=== PATIENT | female | born 1990 | race Caucasian/White ===

== ENCOUNTER → 2017-11-08 08:57 | Outpatient (CLI) | payer MEDICAID, SELFPAY ==
[2017-11-08 10:23] LABS: Glucose,1 Hr (Glucola) 183 mg/dL (80-140)
== END ==
PROVIDERS: PCP Nurse Practitioner Family; Visit Provider Obstetrics & Gynecology
DX: O99.212 Obesity complicating pregnancy, second trimester (principal); Z68.41 Body mass index [BMI] 40.0-44.9, adult; Z3A.28 28 weeks gestation of pregnancy
CPT/HCPCS: 36415; 82950

== ENCOUNTER → 2017-11-15 07:44 | Outpatient (CLI) | payer MEDICAID, SELFPAY ==
[2017-11-15 09:39] LABS: Glucose 1 Hour 173 mg/dL
[2017-11-15 11:40] LABS: Glucose 3 Hour 118 mg/dL
== END ==
PROVIDERS: Obstetrics & Gynecology; PCP Nurse Practitioner Family; Visit Provider Psychiatry & Neurology Psychiatry
DX: R73.02 Impaired glucose tolerance (oral) (principal)
CPT/HCPCS: 36410; 36415; 82951

== ENCOUNTER → 2017-11-22 10:00 | Outpatient (CLI) | payer MEDICAID, SELFPAY ==
--- NOTE | 2017-11-22 14:00 | NS.NUTBLAN_ITS ---
DESCRIPTION/ASSESSMENT: Jana presents for nutrition consult with one elevated blood sugar at 2 hours of the 3 hour GTT. Both her parents have diabetes. No signs of gestational diabetes with her first . She has cheerios, fruit, milk and sugar for breakafst; lasagne and chocolate milk for lunch; pork chops, potato, green beans, corn and milk for supper. She eats kitkat bars and sweets like popsicles and cookies for snack. She states she is active walking and caring for her 4 year old. She spends time at the park and the pool. She works at [employer]. She admits to having no education regarding high blood sugar in . She states she has schizo- affective disorder. INTERVENTION: Discussed with Jana: Effects of high blood sugar on baby and self Diabetes food guide, label reading, portions, distribution, limiting sugar filled food choices. Reviewed basic guidelines. She states if the baby gets too big they will just do a . Physical activity as a way to manage blood sugars Blood sugar test this afternoon 2.5 hours after lunch 151mg/dl. States she does not want to monitor her blood sugars every day. Discussed blood sugar result with her but she states it is difficult for her to change her current food choices because of hte . PLAN: Suggested she shop back at her next provider visit to see what her blood sugar is at that time. She agrees to consider changing food choices at breakfast to increase protein and decrease carbohydrate Informed her that her providers will assess this.
== END ==
PROVIDERS: PCP Nurse Practitioner Family; Visit Provider Dietitian, Registered
DX: O24.419 Gestational diabetes mellitus in pregnancy, unspecified control (principal); Z71.3 Dietary counseling and surveillance
CPT/HCPCS: 97802

== ENCOUNTER → 2017-11-22 10:49 | Outpatient (CLI) | payer MEDICAID, SELFPAY ==
[2017-11-22 11:32] LABS: ROM Plus Negative
== END ==
PROVIDERS: PCP Nurse Practitioner Family; Visit Provider Obstetrics & Gynecology
DX: Z03.71 Encounter for suspected problem with amniotic cavity and membrane ruled out (principal)
CPT/HCPCS: 84112; 97802

== ENCOUNTER 2017-12-13 01:03 | Outpatient (CLI) | payer MEDICAID, SELFPAY ==
--- NOTE | 2017-12-13 10:15 | DI.US_ITS ---
Many abnormalities cannot be diagnosed. A normal exam does not exclude a congenital anomaly. Radiology No. LMP: Exam Date: 12/13/17 [facility] wks days on EDC ([facility]) 02/07/18 Confirmed: HISTORY: LGA,ABNORMAL 1 HR GCT, BORDERLINE GTT,Z34.90 ---- PREDICTED GESTATIONAL AGE NUMBER 32 wks . Range 31 to 33 1 Determined by_X__1STUS___LMP___HISTORY Info. pertaining to fetus # PLACENTA PRESENTATION Grade I-II Cephalic_X__ Anterior__X_Posterior___ Breech____ Right Left Transverse(head right___ Fundal___Low-lying___Previa___ Transverse(head left___ Varying BIOMETRY AMNIOTIC FLUID BPD: 79 mm 31.4 weeks Normal HC: 292 mm 32.1 weeks AC: 285 mm 32.4 weeks FL: 63 mm 32.5 weeks AMNIOTIC FLUID INDEX >26 WK CRL: mm weeks Cisterna Magna: mm CI: 84 RUQ:__5.4____LUQ___5.5 Cerebellum: cm EFW: 1981 grams 55th Percentile RLQ:__2.8____LLQ___2.4____ Total:___16.0 cms Composite AGE= 32.2 wks EDC by US____02/05/18 BIOPHYSICAL PROFILE ANATOMY IDENTIFIED Heart: 4 chamber Rate: 140 BPM LVOT: RVOT: Amniotic Fluid(>2cms)____ Stomach: Kidneys: Respirations (>30 secs) Bladder: Post. Fossa: Body Flex/Extension 3 vessel cord: Ventricles: cord insertion: Lips:____ Extremity Flex/Extension spinal morphology: Nose: Total Score= Palate: NS=not seen Comparison is made with 09/06/17. The fetus in cephalic position. The placenta is anterior. The biometric measurements correspond to 32 weeks 2 days, consistent with previous dating. The amniotic fluid amount appears normal at 16 cm. No abnormalities are identified. IMPRESSION: size and weight are within normal limits for gestational age. Normal FRANCI.
== END 2017-12-13 01:23 ==
PROVIDERS: PCP Nurse Practitioner Family; Visit Provider Obstetrics & Gynecology
DX: Z34.93 Encounter for supervision of normal pregnancy, unspecified, third trimester (principal); O36.63X1 Maternal care for excessive fetal growth, third trimester, fetus 1
CPT/HCPCS: 76816

== ENCOUNTER 2017-12-20 15:05 | Outpatient (CLI) | payer MEDICAID, SELFPAY ==
--- NOTE | 2017-12-21 11:42 | DIABASSESS_ITS ---
DESCRIPTION/ASSESSMENT: Jana is having a stress test and I was invited to visit her to review insulin administration and dosing. She has not had a diabetes visit to date despite attempts to contact her for an appointment. Food Guidelines - Jana eats whatever she wants; cereal and milk in AM; whatever she can grab during her 15 minute lunch break at [employer] which could include chips, candy bar, fruit. She has no time to prepare food and eat. Physical Activity - she is not physically active on a regular basis. She does care for her 5 year old. Medication - currently taking 6 units NPH twice daily. Today she is instructed to increase AM NPH to 10 units and bedtime 8 units. She also has instructions for beginning Regular insulin 2 units with breakfast and supper. She is not storing her insulin in the refrigerator. She uses her legs for injection site. She is not mixing her NPH prior to injection. Monitoring - Jana is testing fasting and randomly after her meals. Fasting blood sugars 82-208 with 2 less than 100 over past 10 days; random blood sugars 91-471, all but 6 of the 30 values over 150mg/dl. INTERVENTION: DSME is provided in the following AADE 7 areas based on patients interest and assessment of needs: Food Guidelines - Discussed carbohydrate sources and portions and problem solved ways to cut back on her portions of those foods. Medication - reviewed preparation, administration and storage of insulin. Discussed new dosing. Limited due to time and her attention. She did demonstrate her pen assembly procedure. Monitoring - reviewed monitoring technique; set time on glucometer and instructed on lancet replacement. Encouraged her to test about 1 hour after a meal, however she works and this is not possible for breakfast and lunch. Reviewed blood sugar targets. She has a new sheet to document her food and blood sugars. Risks - discussed briefly risks to baby of hyperglycemia ACTION PLAN: She will store her unopened pens in the refrigerator. She will mix her NPH insulin prior to use. She will cut back on her carbohydrate portions at each meal - attempting to cut by 1/2 She will take prescribed dose of 10 units AM and 8 units in evening; 2 units regular insulin before breakfast and supper We will f/u Tuesday during her NST.
== END 2017-12-20 15:25 ==
PROVIDERS: PCP Nurse Practitioner Family; Visit Provider Obstetrics & Gynecology Gynecology
DX: O24.419 Gestational diabetes mellitus in pregnancy, unspecified control (principal)
CPT/HCPCS: 59025

== ENCOUNTER 2017-12-23 11:00 | Outpatient (CLI) | payer MEDICAID, SELFPAY ==
--- NOTE | 2017-12-23 15:51 | DIABASSESS_ITS ---
DESCRIPTION/ASSESSMENT: Follow up visit during Jana's NST today to assess glycemic control using 10u NPH AM and 8u NPH PM with addition of Regular insulin at 2 units before breakfast and supper. Visited Jana who states the Regular insulin was not called in, thus she stayed with the original dosing of 6 units NPH morning and evening. She states this morning her fasting blood sugar was over 300mg/dl. She does not have available blood sugars during our brief visit. INTERVENTION: Contacted Dr. Jean who will call in prescription for Regular Kwikpen at 4 units with breakfast and supper. She understands she will be increasing both NPH doses as prescribed and adding regular insulin. Brief review of hypoglycemia symptoms and treatment. Brief review of Gestational Diabetes Guidelines. Unable to review her food intake and monitoring of blood sugars. ACTION PLAN: She will follow insulin schedule and monitor her blood sugars per protocol. We will f/u at her NST next week.
== END 2017-12-23 11:20 ==
PROVIDERS: PCP Nurse Practitioner Family; Visit Provider Obstetrics & Gynecology
DX: O24.419 Gestational diabetes mellitus in pregnancy, unspecified control (principal); Z3A.34 34 weeks gestation of pregnancy
CPT/HCPCS: 59025

== ENCOUNTER 2017-12-27 08:16 | Outpatient (CLI) | payer MEDICAID, SELFPAY ==
--- NOTE | 2017-12-27 15:29 | DIABASSESS_ITS ---
DESCRIPTION/ASSESSMENT: Jana comes back in for her follow up to review dosing insulin with vial and syringe. Blood sugars are better with fasting 166 this morning, usually 170s. She states blood sugar is 280mg/dl in evening. She states she tests her blood sugars, eats, tests blood sugar after dinner and takes insulin at that time. She did not bring her glucometer, log sheet. INTERVENTION: Instructed in the use of the syringe and vial per protocol and she is able to return demonstration. Discussed increasing her mealtime insulin by 1 unit and she feels that would be helpful. Discussed and wrote out process for monitoring and administering her insulin as follows: TAKING INSULIN FOR JANA CHEVY BREAKFAST Test blood sugar Take 10 units NPH and 5 units Regular insulin Eat breakfast Test blood sugar 1 hour after you start breakfast EVENING: Take 5 units Regular Insulin about ? hour before supper Eat supper Test blood sugar 1 hour after you start supper Take 10 units NPH at bedtime ACTION PLAN: We follow up Tuesday during her NST.
--- NOTE | 2017-12-30 10:53 | DIABASSESS_ITS ---
DESCRIPTION/ASSESSMENT: Follow up visit with Jana during her NST today, 12/30 after increasing mealtime insulin to 5 units at breakfast and supper. Blood sugars fasting 598=789; post breakfast 165-218; post lunch 186-214 and post supper 217-286. She has been monitoring her blood sugars in the night at 116-204. INTERVENTION: In consultation with Dr. Casas, basal insulin is increased from 10units to 12 units AM and PM. In addition, an insulin correction scale is initiated at 1 unit to correct 30mg/dl above 130mg/dl. In further discussion with Dr. Casas, she would intensify the mealtime insulin and this will be done if blood sugars 12/31 are not improved. Reviewed hypoglycemia with her and importance of carrying a glucose source at all times. PLAN: We will follow up by telephone in one day: Tuesday12/31/17 to review blood sugars
== END 2017-12-27 08:36 ==
PROVIDERS: PCP Nurse Practitioner Family; Visit Provider Obstetrics & Gynecology
DX: O24.419 Gestational diabetes mellitus in pregnancy, unspecified control (principal); Z3A.34 34 weeks gestation of pregnancy
CPT/HCPCS: 59025

== ENCOUNTER 2017-12-28 12:22 | Emergency (ER) | payer MEDICAID, SELFPAY ==
[2017-12-28 12:45] VITALS: BP 145/73; PULSE 104; RESP 18; TEMP 36; O2SAT 97
--- NOTE | 2017-12-28 13:22 | W.ED.GENAD ---
Discharge Plan Disposition Patient Disposition: [facility] INPATIENT Condition: Fair Discharge Details Chief Complaint: Orthopedic Clinical Impression: Injury of wrist, Trauma during Primary Care Provider: Ayana Colunga ED Provider: Alaina Villafuerte Home Meds and New Rx's Prescriptions: No Action blood sugar diagnostic [Accu-Chek SmartView Test Strip] strip .ROUTE .MEDSUPPLY Qty: 20 RF: 0 blood-glucose meter [Accu-Chek Guide Glucose Meter] misc .ROUTE .MEDSUPPLY Qty: 1 RF: 0 lancets [Accu-Chek Fastclix Lancet Drum] misc .ROUTE .MEDSUPPLY Qty: 50 RF: 0 insulin NPH isoph U-100 human [Humulin N NPH Insulin KwikPen] 100 unit/mL (3 mL) insulin pen 6 unit SC BID Qty: 15 RF: 5 vit-iron fum-folic ac 1 EACH tablet 1 ea PO DAILY RF: 0 promethazine 25 MG tablet 25 mg PO Q6H PRN Qty: 30 RF: 0 sertraline 100 MG tablet 100 mg PO DAILY 30 Days Qty: 30 RF: 11 insulin lispro [Humalog KwikPen Insulin] 100 unit/mL insulin pen 4 unit SC BID RF: 0 acetaminophen [Acetaminophen Extra Strength] 500 MG tablet 1,000 mg PO DAILY RF: 0 Discharge Data Discharge Date/Time-TO BE ENTERED AT DEPARTURE: 12/28/17 13:45 Medical Decision Making Patient presents today with chief complaint of left wrist pain after falling this morning. Patient also reports that she landed on the abdomen, patient's 34 weeks gestation. On exam, I do not see any ecchymosis or signs of trauma to the abdomen. Abdominal exam is consistent with history of gestational age. Exam of the left wrist is significant for ecchymosis, pain over the radial side of the wrist. Patient does have discomfort with palpation of the snuffbox. Discussed the concerning pathology associated with this discomfort and risks associated with this. Will obtain x-ray. I have asked the nursing staff to obtain heart rate heart rate 145 with decelerations to the 120s. Consulted with Dr. Lockhart, [employer], regarding the decelerations and patient's history of trauma. She is advised the patient be transferred to the birthing center for nonstress test. Will hold off on x-ray at this time given the acute concerns for the fetus. Dr. Lockhart did not feel that waiting for imaging was appropriate at this time. Patient will be fitted with a thumb spica which she will keep on until cleared for scaphoid injury concern. I discussed the concerns of the decelerations with the patient. She agrees to going upstairs for NST at this time. Patient placed in a thumb spica. Encouraged elevation and ice. She declined Tylenol. Sent upstairs for NST. Contacted by [facility] who reported the NST was without acute abnormality. Dr. Lockhart questioning patient coming back down for wrist XR as had been initially planned. I advised that this would lead to a second charge for the ER. Contacted the primary care and requested for outpatient xr to be ordered of the patient's left wrist with outpatient f/u to help the patient financially. Advised that as I was concerned for snuff box enderamelia that the patient is in a thumb spica which would be appropriate treatment. Contacted back by PCP nursing staff who advised they did not agree with outpatient xr. They advised that this should have been done prior to the patient going upstairs. Spoke with Elie Reza regarding this issue. He advised that we order this as an outpatient to best treat the patient and prevent unnecessary charges for her. Order was placed and I attempted to contact the patient. She has not yet contacted the department again. Has not come back for imaging. HPI General Mode of arrival: ambulatory. Date/Time Provider Initiated Documentation: 12/28/17 12:37. Limitations to Documentation: no limitations. Information obtained by: patient. HPI Narrative: Patient is a 27-year-old [id number] female, 34 weeks gestation, with chief complaint of left wrist pain. She reports that around 3:00 this morning, while going down a flight of steps, she missed stepped and fell forward. States that she struck her abdomen and fell on her outstretched left hand. She denies any abdominal pain, no bruising. Reports that she feels continued movement. Denies any cramping or spotting. States that she is not having any discomfort in the abdomen at this time. However, she noted swelling, ecchymosis and pain along the thenar eminence and radial side of the left wrist. She denies any altered sensation. Related Data Home Medications Medication Instructions Recorded Confirmed vit-iron fum-folic ac 1 ea PO DAILY 12/10/16 12/27/17 acetaminophen [Acetaminophen Extra 1,000 mg PO DAILY 06/19/17 12/27/17 Strength] promethazine 25 mg PO Q6H PRN #30 tab-cap 06/20/17 12/27/17 sertraline 100 mg PO DAILY 30 Days #30 tab-cap 07/26/17 12/27/17 blood sugar diagnostic strips #20 each 12/08/17 12/27/17 blood-glucose meter #1 each 12/08/17 12/27/17 lancets #50 each 12/08/17 12/27/17 insulin NPH isophane U-100 human 6 unit SC BID #15 ml 12/14/17 12/27/17 100 unit/mL (3 mL) subcutaneous pen insulin lispro (U-100) 100 unit/mL 4 unit SC BID ml 12/26/17 12/27/17 subcutaneous pen Previous Rx's Medication Instructions Recorded promethazine 25 mg PO Q6H PRN #30 tab-cap 06/20/17 sertraline 100 mg PO DAILY 30 Days #30 tab-cap 07/26/17 blood sugar diagnostic strips #20 each 12/08/17 blood-glucose meter #1 each 12/08/17 lancets #50 each 12/08/17 insulin NPH isophane U-100 human 6 unit SC BID #15 ml 12/14/17 100 unit/mL (3 mL) subcutaneous pen Allergies Allergy/AdvReac Type Severity Reaction Status Date / Time Penicillins Allergy Unverified 12/27/17 09:57 pineapple Allergy Anaphylaxsi Unverified 12/27/17 09:57 s General Stated Complaint: Orthopedic JULIETA: 3 Review of Systems Constitutional Denies chills, Denies fatigue and Denies fever(s) Eyes Denies change in vision Cardiovascular Denies chest pain, Denies dyspnea and Denies dyspnea on exertion Respiratory Denies dyspnea and Denies dyspnea on exertion Gastrointestinal Reports as per HPI, Denies change in bowel habits, Denies nausea and Denies vomiting Genitourinary Reports as per HPI Musculoskeletal Reports as per HPI, Denies back pain, Denies numbness and Denies tingling Integumentary/Breasts Reports as per HPI (ecchymosis left wrist) Neurologic Reports as per HPI, Denies numbness, Denies tingling and Denies paresthesias Endocrine Denies fatigue PFSH Family History Mother Diabetes Essential hypertension Personal history of malignant neoplasm Father Diabetes Essential hypertension Heart disease Hyperlipidemia Myocardial infarction Sister No problems noted. Sister No problems noted. Sister No problems noted. Maternal Uncle No problems noted. Maternal Uncle Mental disorder Brother Anencephaly Brother Heart disease Brother No problems noted. Other Asthma Medical History Gestational diabetes requiring insulin (Acute 09/05/15) Schizoaffective disorder (Acute) Poor dentition (Acute 06/20/17) Panic disorder (Acute 03/04/16) BMI 39.0-39.9,adult (Acute 06/28/17) Schizoaffective disorder Social History number of children: 1 Smoking/Tobacco Use Status: Never alcohol intake: former substance use type: does not use kalyan/religious: Faith seatbelt use: sometimes Surgical History Tooth extraction Exam Const General: cooperative, healthy appearing, comfortable, no acute distress, well developed and well groomed Nutritional Appearance: well nourished Orientation: alert and awake Eyes General: appearance normal, both eyes and all related structures Resp Effort & Inspection: normal respiratory effort, able to speak in complete sentences and no respiratory distress Auscultation: clear to auscultation bilaterally Cardio Rate: regular rate Rhythm: regular rhythm Heart Sounds: S1 normal and S2 normal GI Inspection: normal to inspection (patient has abdomen consistent with gestational age. No ecchymosis, no pain with palpation. 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 Limited flexion of the proximal thumb, likely associated with swelling. Has good flexion and extension with isolation testing against resistance. ), normal capillary refill and other (pain with palpation over the snuff box) Psych Appearance: grossly normal and well kempt Mental Status: mental status grossly normal Speech and Movement: speech and movement normal Course Vital Signs Temperature 36 C L 12/28/17 12:45 Pulse 104 H 12/28/17 12:45 Respiratory Rate 18 12/28/17 12:45 Blood Pressure 145/73 H 12/28/17 12:45 Pulse Oximetry 97 12/28/17 12:45 Temperature 36 C L 12/28/17 12:45 Temperature Source Temporal Artery Scan 12/28/17 12:45 Pulse 104 H 12/28/17 12:45 Respiratory Rate 18 12/28/17 12:45 Blood Pressure 145/73 H 12/28/17 12:45 Blood Pressure Position Sitting 12/28/17 12:45 Pulse Oximetry 97 12/28/17 12:45 Oxygen Delivery Method Room Air 12/28/17 12:45 Oxygen Flow Rate 0 12/28/17 12:45 Pain Level 7 12/28/17 12:45
--- NOTE | 2017-12-28 13:25 | ED.GENADUL_ITS ---
Discharge Plan Disposition Patient Disposition: [facility] INPATIENT Condition: Fair Discharge Details Chief Complaint: Orthopedic Clinical Impression: Injury of wrist, Trauma during Primary Care Provider: Ayana Colunga ED Provider: Alaina Villafuerte Home Meds and New Rx's Prescriptions: No Action blood sugar diagnostic [Accu-Chek SmartView Test Strip] strip .ROUTE .MEDSUPPLY Qty: 20 RF: 0 blood-glucose meter [Accu-Chek Guide Glucose Meter] misc .ROUTE .MEDSUPPLY Qty: 1 RF: 0 lancets [Accu-Chek Fastclix Lancet Drum] misc .ROUTE .MEDSUPPLY Qty: 50 RF: 0 insulin NPH isoph U-100 human [Humulin N NPH Insulin KwikPen] 100 unit/mL (3 mL) insulin pen 6 unit SC BID Qty: 15 RF: 5 vit-iron fum-folic ac 1 EACH tablet 1 ea PO DAILY RF: 0 promethazine 25 MG tablet 25 mg PO Q6H PRN Qty: 30 RF: 0 sertraline 100 MG tablet 100 mg PO DAILY 30 Days Qty: 30 RF: 11 insulin lispro [Humalog KwikPen Insulin] 100 unit/mL insulin pen 4 unit SC BID RF: 0 acetaminophen [Acetaminophen Extra Strength] 500 MG tablet 1,000 mg PO DAILY RF: 0 Discharge Data Discharge Date/Time-TO BE ENTERED AT DEPARTURE: 12/28/17 13:45 Medical Decision Making Patient presents today with chief complaint of left wrist pain after falling this morning. Patient also reports that she landed on the abdomen, patient's 34 weeks gestation. On exam, I do not see any ecchymosis or signs of trauma to the abdomen. Abdominal exam is consistent with history of gestational age. Exam of the left wrist is significant for ecchymosis, pain over the radial side of the wrist. Patient does have discomfort with palpation of the snuffbox. Discussed the concerning pathology associated with this discomfort and risks associated with this. Will obtain x-ray. I have asked the nursing staff to obtain heart rate heart rate 145 with decelerations to the 120s. Consulted with Dr. Lockhart, RESEARCH ENGINEER, regarding the decelerations and patient's history of trauma. She is advised the patient be transferred to the birthing center for nonstress test. Will hold off on x-ray at this time given the acute concerns for the fetus. Dr. Lockhart did not feel that waiting for imaging was appropriate at this time. Patient will be fitted with a thumb spica which she will keep on until cleared for scaphoid injury concern. I discussed the concerns of the decelerations with the patient. She agrees to going upstairs for NST at this time. Patient placed in a thumb spica. Encouraged elevation and ice. She declined Tylenol. Sent upstairs for NST. Contacted by VECTOR CONTROL ASSISTANT who reported the NST was without acute abnormality. Dr. Lockhart questioning patient coming back down for wrist XR as had been initially planned. I advised that this would lead to a second charge for the ER. Contacted the primary care and requested for outpatient xr to be ordered of the patient's left wrist with outpatient f/u to help the patient financially. Advised that as I was concerned for snuff box enderamelia that the patient is in a thumb spica which would be appropriate treatment. Contacted back by PCP nursing staff who advised they did not agree with outpatient xr. They advised that this should have been done prior to the patient going upstairs. Spoke with Elie Reza regarding this issue. He advised that we order this as an outpatient to best treat the patient and prevent unnecessary charges for her. Order was placed and I attempted to contact the patient. She has not yet contacted the department again. Has not come back for imaging. HPI General Mode of arrival: ambulatory . Date/Time Provider Initiated Documentation: 12/28/17 12:37 . Limitations to Documentation: no limitations . Information obtained by: patient . HPI Narrative: Patient is a 27-year-old [id number] female, 34 weeks gestation, with chief complaint of left wrist pain. She reports that around 3: 00 this morning, while going down a flight of steps, she missed stepped and fell forward. States that she struck her abdomen and fell on her outstretched left hand. She denies any abdominal pain, no bruising. Reports that she feels continued movement. Denies any cramping or spotting. States that she is not having any discomfort in the abdomen at this time. However, she noted swelling, ecchymosis and pain along the thenar eminence and radial side of the left wrist. She denies any altered sensation. Related Data Home Medications Medication Instructions Recorded Confirmed vit-iron fum-folic ac 1 ea PO DAILY 12/10/16 12/27/17 acetaminophen [Acetaminophen Extra 1,000 mg PO DAILY 06/19/17 12/27/17 Strength] promethazine 25 mg PO Q6H PRN #30 tab-cap 06/20/17 12/27/17 sertraline 100 mg PO DAILY 30 Days #30 tab-cap 07/26/17 12/27/17 blood sugar diagnostic strips #20 each 12/08/17 12/27/17 blood-glucose meter #1 each 12/08/17 12/27/17 lancets #50 each 12/08/17 12/27/17 insulin NPH isophane U-100 human 6 unit SC BID #15 ml 12/14/17 12/27/17 100 unit/mL (3 mL) subcutaneous pen insulin lispro (U-100) 100 unit/mL 4 unit SC BID ml 12/26/17 12/27/17 subcutaneous pen Previous Rx's Medication Instructions Recorded promethazine 25 mg PO Q6H PRN #30 tab-cap 06/20/17 sertraline 100 mg PO DAILY 30 Days #30 tab-cap 07/26/17 blood sugar diagnostic strips #20 each 12/08/17 blood-glucose meter #1 each 12/08/17 lancets #50 each 12/08/17 insulin NPH isophane U-100 human 6 unit SC BID #15 ml 12/14/17 100 unit/mL (3 mL) subcutaneous pen Allergies Allergy/AdvReac Type Severity Reaction Status Date / Time Penicillins Allergy Unverified 12/27/17 09:57 pineapple Allergy Anaphylaxsi Unverified 12/27/17 09:57 s General Stated Complaint: Orthopedic JULIETA: 3 Review of Systems Constitutional Denies chills, Denies fatigue and Denies fever(s) Eyes Denies change in vision Cardiovascular Denies chest pain, Denies dyspnea and Denies dyspnea on exertion Respiratory Denies dyspnea and Denies dyspnea on exertion Gastrointestinal Reports as per HPI, Denies change in bowel habits, Denies nausea and Denies vomiting Genitourinary Reports as per HPI Musculoskeletal Reports as per HPI, Denies back pain, Denies numbness and Denies tingling Integumentary/Breasts Reports as per HPI (ecchymosis left wrist) Neurologic Reports as per HPI, Denies numbness, Denies tingling and Denies paresthesias Endocrine Denies fatigue PFSH Family History Mother Diabetes Essential hypertension Personal history of malignant neoplasm Father Diabetes Essential hypertension Heart disease Hyperlipidemia Myocardial infarction Sister No problems noted. Sister No problems noted. Sister No problems noted. Maternal Uncle No problems noted. Maternal Uncle Mental disorder Brother Anencephaly Brother Heart disease Brother No problems noted. Other Asthma Medical History Gestational diabetes requiring insulin (Acute 09/05/15) Schizoaffective disorder (Acute) Poor dentition (Acute 06/20/17) Panic disorder (Acute 03/04/16) BMI 39.0-39.9,adult (Acute 06/28/17) Schizoaffective disorder Social History number of children: 1 Smoking/Tobacco Use Status: Never alcohol intake: former substance use type: does not use kalyan/sabianist: Yarsanism seatbelt use: sometimes Surgical History Tooth extraction Exam Const General: cooperative, healthy appearing, comfortable, no acute distress, well developed and well groomed Nutritional Appearance: well nourished Orientation: alert and awake Eyes General: appearance normal, both eyes and all related structures Resp Effort & Inspection: normal respiratory effort, able to speak in complete sentences and no respiratory distress Auscultation: clear to auscultation bilaterally Cardio Rate: regular rate Rhythm: regular rhythm Heart Sounds: S1 normal and S2 normal GI Inspection: normal to inspection (patient has abdomen consistent with gestational age. No ecchymosis, no pain with palpation. ) Back/Spine/Pelvis Back: no CVA tenderness Thoracic/Lumbar Spine: thoracic and lumbar spine normal to inspection Skin General skin exam: ecchymosis (to left thenar emmenance) Neuro General: alert, awake and oriented x3 Cognition: normal cognition Speech: speech normal Gait: normal gait Motor: muscle tone normal throughout and strength 5/5 throughout (5/5 shank stitcher strength) Sensory Exam: no sensory deficits noted Extrem General: abnormal to inspection (ecchymosis and swelling to the left thenar emmenance and radial side of wrist. Limited flexion of the proximal thumb, likely associated with swelling. Has good flexion and extension with isolation testing against resistance. ), normal capillary refill and other (pain with palpation over the snuff box) Psych Appearance: grossly normal and well kempt Mental Status: mental status grossly normal Speech and Movement: speech and movement normal Course Vital Signs Temperature 36 C L 12/28/17 12:45 Pulse 104 H 12/28/17 12:45 Respiratory Rate 18 12/28/17 12:45 Blood Pressure 145/73 H 12/28/17 12:45 Pulse Oximetry 97 12/28/17 12:45 Temperature 36 C L 12/28/17 12:45 Temperature Source Temporal Artery Scan 12/28/17 12:45 Pulse 104 H 12/28/17 12:45 Respiratory Rate 18 12/28/17 12:45 Blood Pressure 145/73 H 12/28/17 12:45 Blood Pressure Position Sitting 12/28/17 12:45 Pulse Oximetry 97 12/28/17 12:45 Oxygen Delivery Method Room Air 12/28/17 12:45 Oxygen Flow Rate 0 12/28/17 12:45 Pain Level 7 12/28/17 12:45
[2017-12-28] MEDS: Acetaminophen 325 MG TAB 650 MG PO (13:31)
== END 2017-12-28 13:45 | disposition short-term general hospital (02) ==
LOC: ER 13:36 → BCD 01-03 10:23
PROVIDERS: Emergency Provider Physician Assistant; PCP Nurse Practitioner Family; Referring Provider Physician Assistant
DX: O9A.213 Injury, poisoning and certain other consequences of external causes complicating pregnancy, third trimester (principal); S69.92XA Unspecified injury of left wrist, hand and finger(s), initial encounter; O76 Abnormality in fetal heart rate and rhythm complicating labor and delivery; O24.414 Gestational diabetes mellitus in pregnancy, insulin controlled; Z79.4 Long term (current) use of insulin; W10.8XXA Fall (on) (from) other stairs and steps, initial encounter; Z3A.34 34 weeks gestation of pregnancy
CPT/HCPCS: 29125; 29130; 99283; 99285; 59025; L3807

== ENCOUNTER 2017-12-28 13:47 | Outpatient (CLI) | payer MEDICAID, SELFPAY | END 2017-12-28 14:07 | PROVIDERS: PCP Nurse Practitioner Family; Visit Provider Obstetrics & Gynecology | DX: O9A.213 Injury, poisoning and certain other consequences of external causes complicating pregnancy, third trimester (principal); W19.XXXA Unspecified fall, initial encounter; Z3A.34 34 weeks gestation of pregnancy ==

== ENCOUNTER 2017-12-29 09:37 | Outpatient (CLI) | payer MEDICAID, SELFPAY ==
--- NOTE | 2017-12-29 09:50 | DI.RAD_ITS ---
SYMPTOMS/DIAGNOSIS: FALL ON OUTSTRETCHED HAND LEFT WRIST: There is no evidence of a fracture or dislocation.
--- NOTE | 2017-12-29 10:17 | W.ED.FU ---
Date of service: 12/29/18 Time of Service: 10:15 Jana did return this am for her x-ray of the wrist. I apprised her of my impression of the x-ray and Dr. Moffett's confirmation of no fracture seen. She has her brace on today. With light palpation she has tenderness to the thumb and snuff box. I advised she keep the brace on until she has no more pain. She has f/u appointment with her pcp for her routine care. She ask if she could use acetaminophen for the pain and I agreed that would be fine. She reports her nstress test was good. She has good CSMT to the fingers while splint in place.
--- NOTE | 2018-01-02 15:39 | DIABASSESS_ITS ---
Telephone follow-up today with Jana for blood sugar control. She is instructed to take 12 units NPH AM and PM and insulin on a correction scale prior to breakfast and supper. Today she states she took 10 NPH and 5 Regular today which does not reflect most recent instructions. She recalls blood sugars today at 176 at breakfast and 182 before lunch. I explained to her we would increase her insulin dose tomorrow when she comes in per Dr. Casas. She will bring her blood sugar, insulin and food log with her.
== END 2017-12-29 09:57 ==
PROVIDERS: PCP Nurse Practitioner Family; Visit Provider Physician Assistant
DX: M25.532 Pain in left wrist (principal); W19.XXXA Unspecified fall, initial encounter
CPT/HCPCS: 73110

== ENCOUNTER 2017-12-30 08:59 | Outpatient (CLI) | payer MEDICAID, SELFPAY | END 2017-12-30 09:19 | PROVIDERS: PCP Nurse Practitioner Family; Visit Provider Obstetrics & Gynecology Gynecology | DX: O24.419 Gestational diabetes mellitus in pregnancy, unspecified control (principal); Z3A.34 34 weeks gestation of pregnancy | CPT/HCPCS: 59025 ==

== ENCOUNTER 2018-01-03 00:44 | Outpatient (CLI) | payer MEDICAID, SELFPAY ==
--- NOTE | 2018-01-03 13:42 | DI.US_ITS ---
SYMPTOMS/DIAGNOSIS: ESTIMATED WEIGHT, DIABETIC, O24.414 Many abnormalities cannot be diagnosed. A normal exam does not exclude a congenital anomaly. Radiology No. [id number] LMP: Exam Date: 01/03/18 [facility] wks days on EDC ([facility]) 02/07/18 Confirmed: HISTORY: ---- PREDICTED GESTATIONAL AGE NUMBER 35 weeks with a range of 34 weeks to 36 weeks. 1 Determined by_X__1ST US___LMP___HISTORY PLACENTA PRESENTATION Grade II Cephalic_X__ Anterior_X__Posterior___ Breech____ Right__X___ Left Transverse(head right___ Fundal___Low-lying___Previa___ Transverse(head left___ Varying BIOMETRY AMNIOTIC FLUID BPD: 87 mm 35+2 weeks Normal HC: 319 mm 35+6 weeks AC: 318 mm 35+5 weeks FL: 70 mm 35+5 weeks AMNIOTIC FLUID INDEX >26 WK CRL: mm weeks Cisterna Magna: mm CI: 79 RUQ: 5.76 LUQ: 3.43 Cerebellum: cm EFW: 2743 grams Percentile: 67th RLQ: 7.75 LLQ: 6.39 Total: 23 cm Composite AGE= 35+5 wks EDC by US: 02/02/18 BIOPHYSICAL PROFILE ANATOMY IDENTIFIED SCORE 0/2 Heart: 4-Chamber_X__Rate:BPM 140 LVOT: RVOT: Amniotic Fluid(>2cms)____ Stomach:__X Kidneys: Respirations (>30 secs) Bladder:___X Post. Fossa: Body Flex/Extension 3-vessel cord:__X Ventricles: cord insertion: Lips:____ Extremity Flex/Extension spinal morphology: Nose: Total Score= Palate: NS=not seen COMMENTS: OB ultrasound was performed utilizing limited third trimester protocol. biometry is consistent with gestational age of 35 weeks 5 days and an EDS of 02/02/18. Estimated weight is 2743 g, which is at the 67th percentile for predicted gestational age. Placenta is anterior with no placenta previa. There is visually a normal to mildly increased quantity of amniotic fluid and the FRANCI is 23, consistent with mild polyhydramnios. The fetus is in cephalic presentation.
== END 2018-01-03 01:04 ==
PROVIDERS: PCP Nurse Practitioner Family; Visit Provider Obstetrics & Gynecology
DX: O24.414 Gestational diabetes mellitus in pregnancy, insulin controlled (principal); O40.3XX1 Polyhydramnios, third trimester, fetus 1; Z36.89 Encounter for other specified antenatal screening
CPT/HCPCS: 76816

== ENCOUNTER 2018-01-03 11:45 | Outpatient (CLI) | payer MEDICAID, SELFPAY | END 2018-01-03 12:05 | PROVIDERS: PCP Nurse Practitioner Family; Visit Provider Obstetrics & Gynecology Gynecology | DX: O24.419 Gestational diabetes mellitus in pregnancy, unspecified control (principal); Z3A.35 35 weeks gestation of pregnancy | CPT/HCPCS: 59025 ==

== ENCOUNTER 2018-01-05 11:00 | Observation (INO) | payer MEDICAID, SELFPAY ==
[2018-01-05 16:38] LABS: ROM Plus Negative
== END 2018-01-05 17:26 | disposition home or self-care (01) ==
PROVIDERS: Admitting Provider Obstetrics & Gynecology; PCP Nurse Practitioner Family; Visit Provider Obstetrics & Gynecology
DX: Z04.3 Encounter for examination and observation following other accident (principal); Z3A.36 36 weeks gestation of pregnancy; V49.9XXA Car occupant (driver) (passenger) injured in unspecified traffic accident, initial encounter
CPT/HCPCS: 84112; 59025; G0378

== ENCOUNTER 2018-01-06 09:02 | Outpatient (CLI) | payer MEDICAID, SELFPAY | END 2018-01-06 09:22 | PROVIDERS: PCP Nurse Practitioner Family; Visit Provider Obstetrics & Gynecology | DX: O24.419 Gestational diabetes mellitus in pregnancy, unspecified control; Z3A.35 35 weeks gestation of pregnancy | CPT/HCPCS: 59025 ==

== ENCOUNTER 2018-01-10 07:17 | Outpatient (CLI) | payer MEDICAID, SELFPAY | END 2018-01-10 07:37 | PROVIDERS: PCP Nurse Practitioner Family; Visit Provider Obstetrics & Gynecology | DX: O24.419 Gestational diabetes mellitus in pregnancy, unspecified control (principal); Z3A.36 36 weeks gestation of pregnancy | CPT/HCPCS: 59025 ==

== ENCOUNTER 2018-01-10 12:25 | Outpatient (REF) | payer MEDICAID, SELFPAY | END 2018-01-10 12:45 | LOC: LBN 12:25 | PROVIDERS: PCP Nurse Practitioner Family; Visit Provider Obstetrics & Gynecology | DX: Z34.93 Encounter for supervision of normal pregnancy, unspecified, third trimester (principal); Z36.85 Encounter for antenatal screening for Streptococcus B; O24.419 Gestational diabetes mellitus in pregnancy, unspecified control; Z3A.36 36 weeks gestation of pregnancy | CPT/HCPCS: 87081 ==

== ENCOUNTER 2018-01-13 00:28 | Outpatient (CLI) | payer MEDICAID, SELFPAY ==
--- NOTE | 2018-01-13 09:26 | DI.US_ITS ---
SYMPTOMS/DIAGNOSIS: GDM, 024.414 OB ULTRASOUND: Comparison is made with . The fetus is in cephalic position. The placenta is grade II and anterior. The biometric measurements correspond to 37 weeks 1 day, consistent with previous dating. The estimated weight is 3170 grams, corresponding to the 76th percentile. The amniotic fluid index is 18.3 cm. IMPRESSION: measurements are within the expected range. Many abnormalities cannot be diagnosed. A normal exam does not exclude a congenital anomaly. Radiology No. [id number] LMP: Exam Date: 01/13/18 [facility] wks days on EDC ([facility]) Confirmed: HISTORY: growth, FRANCI ---- PREDICTED GESTATIONAL AGE NUMBER 36+3 weeks with a range of 35+3 weeks to 37+3 weeks. 1 Determined by 1STUS X LMP___HISTORY Info. pertaining to fetus # PLACENTA PRESENTATION Grade II Cephalic X Anterior X Posterior___ Breech____ Right Left Transverse(head right___ Fundal___Low-lying___Previa___ Transverse(head left___ Varying BIOMETRY AMNIOTIC FLUID BPD: 90 mm 36+3 weeks Normal HC: 329 mm 37+3 weeks AC: 338 mm 37+5 weeks FL: 72 mm 36+6 weeks AMNIOTIC FLUID INDEX >26 WK CRL: mm weeks Cisterna Magna: mm CI: 79 RUQ: 7.21 LUQ: 2.63 Cerebellum: cm EFW: 3170 grams Percentile 76% RLQ: 5.74 LLQ: 2.76 Total: 18.3 cms Composite AGE= 37+1 wks EDC by US 02/02/18 BIOPHYSICAL PROFILE ANATOMY IDENTIFIED SCORE 0/2 Heart: 4-Chamber X Rate: 135 BPM LVOT: RVOT: Amniotic Fluid(>2cms)____ Stomach: X Kidneys: Respirations (>30 secs) Bladder: Post. Fossa: Body Flex/Extension 3 vessel cord: Ventricles: cord insertion: Lips:____ Extremity Flex/Extension spinal morphology: Nose: Total Score= Palate: NS=not seen
== END 2018-01-13 00:48 ==
PROVIDERS: PCP Nurse Practitioner Family; Visit Provider Obstetrics & Gynecology
DX: O24.414 Gestational diabetes mellitus in pregnancy, insulin controlled (principal)
CPT/HCPCS: 76816

== ENCOUNTER 2018-01-13 08:23 | Outpatient (CLI) | payer MEDICAID, SELFPAY | END 2018-01-13 08:43 | PROVIDERS: PCP Nurse Practitioner Family; Visit Provider Obstetrics & Gynecology | DX: O24.419 Gestational diabetes mellitus in pregnancy, unspecified control (principal); Z3A.36 36 weeks gestation of pregnancy | CPT/HCPCS: 59025 ==

== ENCOUNTER 2018-01-17 07:53 | Outpatient (CLI) | payer MEDICAID, SELFPAY | END 2018-01-17 08:13 | PROVIDERS: PCP Nurse Practitioner Family; Visit Provider Obstetrics & Gynecology | DX: O24.419 Gestational diabetes mellitus in pregnancy, unspecified control (principal); Z3A.37 37 weeks gestation of pregnancy | CPT/HCPCS: 59025 ==

== ENCOUNTER 2018-01-19 01:36 | Outpatient (CLI) | payer MEDICAID, SELFPAY ==
--- NOTE | 2018-01-19 13:12 | DI.US_ITS ---
SYMPTOMS/DIAGNOSIS: POORLY CONTROLLED GESTATIONAL DIABETES MELLITUS, O24.414 OBSTETRICAL ULTRASOUND, BIOPHYSICAL PROFILE: Many abnormalities cannot be diagnosed. A normal exam does not exclude a congenital anomaly. Radiology No. [id number] LMP: Exam Date: 01/19/18 [facility] 7 wks 0 days on EDC ([facility]) 02/07/18 Confirmed: HISTORY: ---- PREDICTED GESTATIONAL AGE NUMBER 37+3 weeks with a range of 36+3 weeks to 38+3 weeks. 1 Determined by___1STUS___LMP___HISTORY PLACENTA PRESENTATION Grade I-II Cephalic_X__ Anterior_X__Posterior___ Breech____ Right__X___ Left Transverse(head right___ Fundal___Low-lying___Previa___ Transverse(head left___ Varying BIOMETRY AMNIOTIC FLUID BPD: 91 mm 36+6 weeks Normal HC: 333 mm 38 weeks Oligo Polyhydramnios AC: 373 mm 41+2 weeks FL: 73 mm 37+2 weeks AMNIOTIC FLUID INDEX >26 WK CRL: mm weeks Cisterna Magna: mm CI: RUQ: LUQ Cerebellum: cm EFW: 3804 grams Percentile RLQ: LLQ Total: cms Composite AGE= 38+3 wks EDC by US: 01/30/18 BIOPHYSICAL PROFILE ANATOMY IDENTIFIED SCORE 0/2 Heart: 4-Chamber___Rate:BPM 153 LVOT: RVOT: Amniotic Fluid(>2cms)__X__ Stomach:__X Kidneys: Respirations (>30 secs)__X___ Bladder:___X Post. Fossa: Body Flex/Extension___X___ 3-vessel cord:__X Ventricles: cord insertion: Lips:____ Extremity Flex/Extension___X____ spinal morphology: Nose: Total Score = 8 Palate: NS=not seen
== END 2018-01-19 01:56 ==
PROVIDERS: PCP Nurse Practitioner Family; Visit Provider Obstetrics & Gynecology
DX: O24.414 Gestational diabetes mellitus in pregnancy, insulin controlled (principal); Z36.2 Encounter for other antenatal screening follow-up
CPT/HCPCS: 76815; 76819

== ENCOUNTER 2018-01-19 13:44 | Outpatient (CLI) | payer MEDICAID, SELFPAY | END 2018-01-19 14:04 | PROVIDERS: PCP Nurse Practitioner Family; Visit Provider Obstetrics & Gynecology Gynecology | DX: O24.419 Gestational diabetes mellitus in pregnancy, unspecified control (principal); Z3A.37 37 weeks gestation of pregnancy | CPT/HCPCS: 59025 ==

== ENCOUNTER 2018-01-22 18:15 | Observation (INO) | payer MEDICAID, SELFPAY | END 2018-01-22 19:40 | disposition home or self-care (01) | LOC: OBS 19:43 | PROVIDERS: Admitting Provider Obstetrics & Gynecology Gynecology; PCP Nurse Practitioner Family; Visit Provider Obstetrics & Gynecology Gynecology | DX: O47.03 False labor before 37 completed weeks of gestation, third trimester (principal); Z3A.37 37 weeks gestation of pregnancy | CPT/HCPCS: G0378 ==

== ENCOUNTER 2018-01-27 09:46 | Inpatient (IN) | payer MEDICAID, SELFPAY ==
[2018-01-24 21:05] LABS: HGB 12.2 g/dL (12.0-15.5); Mean Corp. HGB Concentration 33.9 g/dL (32.0-36.0); Mean Corpuscular Hemoglobin 30.4 pg (27.0-33.0); Mean Corpuscular Volume 89.8 fL (80-95); Mean Platelet Volume 10.6 fL (8.0-11.0); Platelet Count 182 x1000/uL (130-400); RBC 4.01 m/cumm (4.00-5.20); RBC Distribution Width 13.6 % (11.7-14.6); White Blood Cell Count 10.06 k/cumm (4.4-10.8)
[2018-01-25] MEDS: Zolpidem 5 MG TAB 10 MG PO (01:42)
[2018-01-25] MEDS: Normal Saline Flush 10 ML SYR IVP ×2 (09:33→20:01)
[2018-01-25] MEDS: Hydrocortisone 1% CR 30 GM TUBE TP ×2 (16:03→20:00)
[2018-01-25] MEDS: Insulin REGULAR-Human 100 UNITS/ML UNIT SC (16:20)
[2018-01-25] MEDS: Insulin NPH-Human 300 UNITS/3 ML PEN 10 UNIT SC (18:55)
[2018-01-25] MEDS: MORPHine 10 MG/ML VIAL IM (22:00)
[2018-01-25] MEDS: hydrOXYzine 25 MG/ML VIAL IM (22:03)
[2018-01-26] MEDS: Hydrocortisone 1% CR 30 GM TUBE TP ×3 (08:00→21:08)
[2018-01-26] MEDS: Insulin NPH-Human 300 UNITS/3 ML PEN 6 UNIT SC (09:21)
[2018-01-26] MEDS: Insulin REGULAR-Human 100 UNITS/ML UNIT SC (09:40)
[2018-01-26] MEDS: Lactated Ringers 1,000 ML 200 ML IV (09:42)
[2018-01-26] MEDS: Normal Saline Flush 10 ML SYR IVP (10:04)
[2018-01-26] MEDS: Dinoprostone-CERVICAL 10 MG VSUPP VG (18:20)
[2018-01-26] MEDS: Insulin REGULAR-Human 100 UNITS/ML UNIT 6 UNITS SC (20:35)
[2018-01-26] MEDS: Insulin NPH-Human 300 UNITS/3 ML PEN 10 UNIT SC (20:40)
[2018-01-26] MEDS: MORPHine 10 MG/ML VIAL IM (21:06)
[2018-01-26] MEDS: hydrOXYzine 25 MG/ML VIAL IM (21:08)
[2018-01-27] MEDS: Lactated Ringers 1,000 ML 125 ML IV (05:55)
[2018-01-27] MEDS: Insulin NPH-Human 300 UNITS/3 ML PEN 10 UNIT SC (08:25)
[2018-01-27] MEDS: Insulin REGULAR-Human 100 UNITS/ML UNIT 6 UNITS SC (08:25)
[2018-01-27] MEDS: fentaNYL 100 MCG/2 ML VIAL 25 MCG IVP (09:27)
[2018-01-27] MEDS: fentaNYL 100 MCG/2 ML VIAL 20 MCG IJ (09:45)
--- NOTE | 2018-01-27 09:46 | HPE_ITS ---
Assessment and Plan (1) Failed induction of labor: Current visit: Yes Status: Acute Informed consent was obtained. Patient was made aware of the risk of infection bleeding damage to surrounding structures including bowel and bladder and the risk that she may have an ectopic where she become in the future after her tubal sterilization. Her questions were answered and we will proceed to the OR. History of Present Illness Chief Complaint: Unsuccessful induction of labor at 38-3/7 weeks estimated gestational age Narrative: Patient is a 27-year old 2 para 1 female with a estimated date of delivery of 02/07/2018 currently 38+ weeks estimated gestational age who was admitted to the center at [facility] at 37-6/7 weeks for induction of labor. Her induction has been unsuccessful cervix has remained essentially unchanged presenting part remains vertex and high and the patient has been experiencing greater than expected discomfort with the cervical ripening. We had discussed during her the possibility of a at that time based on a breech presentation was spontaneously change cephalic she was agreeable to a at that time and was counseled by myself that after the breech presentation had changed to cephalic that she would not have a C- section. Is admitted on 01/24/2018 with unfavorable cervix estimated weight 6 67th percentile with a vertex presentation documented by bedside ultrasound. Over the course of the last 4 days she has received misoprostol orally cervical ripening in the form of a Thakur balloon and Cervidil overnight along with Pitocin augmentation of contractions. Her heart rate remains category 1 contractions have been recent have responded to the cervical ripening and the oxytocin infusion but no appreciable cervical change and increased discomfort. Patient complains of back pain. course: #1 complicated by poor dentition #2 poorly controlled gestational diabetes she has been taking twice daily NPH and varying doses of regular insulin prior to meals. Initially her sugars have been variable with fastings in the 200s postprandials in the 300s. However in the last 2-2-1/2 weeks she has had improvement in her glycemic control. While hospitalized she has required 6 units of NPH twice daily and small doses of regular prior to scheduled meals. #3 schizoaffective disorder. Patient stopped her sertraline during this she has been cooperative and very compliant with the insulin regime. Review of Systems Constitutional Reports body ache(s) and Reports difficulty sleeping Respiratory Reports system reviewed and no additional complaints, except as docu Gastrointestinal Reports other (Patient was instructed to remain n.p.o.) Meds Home Medications Medication Instructions Recorded Confirmed Type vit-iron fum-folic ac 1 ea PO DAILY 12/10/16 01/24/18 History acetaminophen [Acetaminophen Extra 1,000 mg PO DAILY 06/19/17 01/24/18 History Strength] promethazine 25 mg PO Q6H PRN #30 tab-cap 06/20/17 01/24/18 Rx sertraline 100 mg PO DAILY 30 Days #30 tab-cap 07/26/17 01/24/18 Rx blood-glucose meter #1 each 12/08/17 01/24/18 Rx lancets #50 each 12/08/17 01/24/18 Rx insulin lispro (U-100) 100 unit/mL 14 unit SC AC ml 12/26/17 01/24/18 History subcutaneous pen blood sugar diagnostic strips #100 each 01/10/18 01/24/18 Rx insulin NPH isoph U-100 human 18 unit SC BID 01/24/18 01/24/18 History [Humulin N NPH Insulin KwikPen] Allergies Allergy/AdvReac Type Severity Reaction Status Date / Time pineapple Allergy Anaphylaxsi Unverified 01/24/18 20:56 s Penicillins AdvReac Intermediate Other (See Unverified 01/24/18 20:56 Comment) Exam Const General: acute distress (Breathing through contractions using nitrous oxide) Nutritional Appearance: obese Orientation: alert, awake and oriented x3 Resp Effort & Inspection: normal respiratory effort Cardio Palpation: normal PMI Rate: regular rate Rhythm: regular rhythm Heart Sounds: S1 normal and S2 normal GI Inspection: normal to inspection Palpation: other Manual OB Exam: other (No change from previous exams cervix is posterior presenting part high. heart 130s with category 1 tracing contractions irregular) Results Labs : 01/24/18 20:46
[2018-01-27] MEDS: Sodium Citrate 30 ML CUP PO (10:23)
[2018-01-27] MEDS: AZITHROMYCIN 500 MG in Normal Saline 250 ML 250 MG IVPB (10:23)
[2018-01-27] MEDS: Lactated Ringers 1,000 ML 200 ML IV (11:12)
--- NOTE | 2018-01-27 11:25 | FALL_PTH ---
PATIENT: Jana Napier LOC: OBS U#:[id number] AGE/SX: 27/F ROOM: OBS.304 RE01/27/[address]: Yuko Tolliver : 1990 BED: DIS: 01/30/2018 SPEC #: [id number] RECD: 01/27/18 12:37 STATUS: BRITNEY REQ #: [id number] RENE: 01/27/18 11:[address]: Sue Lockhart DEPT: Surgical Specimen RECD BY: Lillie Xiong ENTERED: 01/27/18 12:37 SP TYPE: Fall OTHR DR: Ayana Colunga APRN Tissues: 1 - FALLOPIAN TUBE (STERILIZATION) 2 - FALLOPIAN TUBE (STERILIZATION) Procedures: GROSS AND MICRO LEVEL 2 Comments: [id number]
[2018-01-27] MEDS: Methylergonovine 0.2 MG/ML VIAL (12:30)
[2018-01-27] MEDS: Ketorolac 30 MG/ML VIAL IVP ×2 (17:13→23:58)
[2018-01-27] MEDS: diphenhydrAMINE 50 MG/ML VIAL 25 MG IVP (17:17)
[2018-01-27] MEDS: Hydrocortisone 1% CR 30 GM TUBE TP (19:15)
[2018-01-28 07:04] LABS: HCT 27.7 % (36.0-46.0); HGB 9.1 g/dL (12.0-15.5); Mean Corp. HGB Concentration 32.9 g/dL (32.0-36.0); Mean Corpuscular Hemoglobin 30.1 pg (27.0-33.0); Mean Corpuscular Volume 91.7 fL (80-95); Mean Platelet Volume 10.1 fL (8.0-11.0); Platelet Count 144 x1000/uL (130-400); RBC 3.02 m/cumm (4.00-5.20); RBC Distribution Width 13.6 % (11.7-14.6); White Blood Cell Count 9.66 k/cumm (4.4-10.8)
[2018-01-28] MEDS: Ketorolac 30 MG/ML VIAL IVP (07:16)
--- NOTE | 2018-01-28 09:30 | W.PM.PROGNOT ---
Assessment and Plan (1) S/P section: Current visit: Yes Status: Acute POD 1 - Making satisfactory postoperative progress. Continue routine care. May shower this afternoon. Subjective Interval history since last seen: Doing well this morning. Pain well controlled. Has been out of bed since last night. No nausea or vomiting. Tolerating regular diet. Objective Objective Clinical Data: Abnormal lab results 01/28/18 Range/Units 06:40 RBC 3.02 L (4.00-5.20) m/cumm Hgb 9.1 L (12.0-15.5) g/dL Hct 27.7 L (36.0-46.0) % Vital Signs Pain Level 4 01/27/18 23:58 Intake & Output 01/27/18 01/27/18 01/28/18 11:59 23:59 11:59 Intake Total 2119.5 / 2119.5 2300 / 2300 Output Total 1700 / 1700 Balance 419.5 / 419.5 2300 / 2300 Intake: IV 2119.5 / 2119.5 2300 / 2300 Output: Urine 1100 / 1100 Estimated Blood Loss 600 / 600 Other: Urine Color Straw Urine Appearance Clear Laboratory Results WBC 9.66 k/cumm (4.4-10.8) 01/28/18 06:40 RBC 3.02 m/cumm (4.00-5.20) L 01/28/18 06:40 Hgb 9.1 g/dL (12.0-15.5) L 01/28/18 06:40 Hct 27.7 % (36.0-46.0) L 01/28/18 06:40 MCV 91.7 fL (80-95) 01/28/18 06:40 MCH 30.1 pg (27.0-33.0) 01/28/18 06:40 MCHC 32.9 g/dL (32.0-36.0) 01/28/18 06:40 RDW 13.6 % (11.7-14.6) 01/28/18 06:40 Plt Count 144 x1000/uL (130-400) 01/28/18 06:40 MPV 10.1 fL (8.0-11.0) 01/28/18 06:40 Patient ABO/Rh O Positive 01/24/18 20:46 Antibody Screen Negative 01/24/18 20:46
[2018-01-28] MEDS: Hydrocortisone 1% CR 30 GM TUBE TP ×2 (09:46→15:52)
[2018-01-28] MEDS: Ibuprofen 600 MG TAB PO (10:20)
[2018-01-28] MEDS: Docusate Sodium 100 MG CAP PO (10:20)
[2018-01-28] MEDS: Acetaminophen 325 MG TAB 650 MG PO (10:21)
[2018-01-28] MEDS: Measles, Mumps, & Rubella Vaccine 0.5 ML VIAL SC (15:52)
[2018-01-28] MEDS: oxyCODONE 5 mg/Acetaminophen 325 mg TAB PO ×2 (18:13→23:30)
[2018-01-29] MEDS: oxyCODONE 5 mg/Acetaminophen 325 mg TAB PO ×3 (06:53→15:50)
--- NOTE | 2018-01-29 09:32 | W.PM.PROGNOT ---
Assessment and Plan (1) S/P section: Current visit: Yes Status: Acute Continue routine postop care Plan for discharge home tomorrows. If blood sugars run relatively normal then we may discontinue testing. Will restart Zoloft. Patient was previously taking 200 mg daily and discontinued in first trimester. Will restart at 100 mg daily for now. Subjective Interval history since last seen: Doing well. No problems overnight Tolerating regular diet. Ambulatory Pain well controlled with NSAIDs and Percocet Exam Narrative Exam Narrative: Abd -Soft. Appropriately tender. Incision C/D/I Objective Objective Clinical Data: Vital Signs Pain Level 5 01/29/18 06:53 Laboratory Results WBC 9.66 k/cumm (4.4-10.8) 01/28/18 06:40 RBC 3.02 m/cumm (4.00-5.20) L 01/28/18 06:40 Hgb 9.1 g/dL (12.0-15.5) L 01/28/18 06:40 Hct 27.7 % (36.0-46.0) L 01/28/18 06:40 MCV 91.7 fL (80-95) 01/28/18 06:40 MCH 30.1 pg (27.0-33.0) 01/28/18 06:40 MCHC 32.9 g/dL (32.0-36.0) 01/28/18 06:40 RDW 13.6 % (11.7-14.6) 01/28/18 06:40 Plt Count 144 x1000/uL (130-400) 01/28/18 06:40 MPV 10.1 fL (8.0-11.0) 01/28/18 06:40 Patient ABO/Rh O Positive 01/24/18 20:46 Antibody Screen Negative 01/24/18 20:46
[2018-01-29] MEDS: Hydrocortisone 1% CR 30 GM TUBE TP ×2 (10:29→15:48)
[2018-01-29] MEDS: Docusate Sodium 100 MG CAP PO (14:06)
[2018-01-29] MEDS: Ibuprofen 600 MG TAB PO (15:48)
[2018-01-29] MEDS: Sertraline 50 MG TAB 100 MG PO (21:08)
[2018-01-30] MEDS: Ibuprofen 600 MG TAB PO ×2 (03:28→08:43)
--- NOTE | 2018-01-30 07:29 | ROE_ITS ---
REPORT OF OPERATIVE PROCEDURE DATE OF PROCEDURE January 27, 2018 PREOPERATIVE DIAGNOSES 1. Intrauterine at 38 and 2/7th weeks estimated gestational age. 2. Poorly controlled gestational diabetes. 3. Unsuccessful induction of labor. 4. Multiparity desiring permanent sterilization. POSTOPERATIVE DIAGNOSES 1. Intrauterine at 38 and 2/7th weeks estimated gestational age. 2. Poorly controlled gestational diabetes. 3. Unsuccessful induction of labor. 4. Multiparity desiring permanent sterilization. PROCEDURE Primary low transverse caesarean delivery. Bilateral salpingectomy. SURGEON Yuko Tolliver M.D. CHEESE PRODUCTION SUPERVISOR Malik Bruno M.D. ANESTHESIA Spinal, Court Cotton CRNA IV FLUIDS 800 cc of crystalloid URINE OUTPUT 1100 cc of clear aneudy urine in the Thakur catheter at the completion of the procedure. DRAINS Thakur to gravity drainage. ESTIMATED BLOOD LOSS 600 cc SPECIMENS Cord blood to pathology. Bilateral fallopian tubes to pathology. COMPLICATIONS None. DISPOSITION Awake to recovery area in stable condition. INDICATIONS A 27-year-old G2, P1 female with poorly controlled gestational diabetes, who was admitted for cervical ripening and induction of labor. Over the course of three days, she had a variety of agents to ripen the cervix and oxytocin infusion was initiated on day #3. The patient tolerated the oxytocin infusion poorly. The back pain that she had experiencing throughout her cervical ripening intensified and she requested a C-delivery. We had discussed this as an option during her because of an unstable lie. She was determined to be breech and was consented for caesarean delivery, but had spontaneously verted to cephalic on both occasions. FINDINGS AT THE TIME OF SURGERY A male fetus in the RO-position not engaged in the pelvis with copious amniotic fluid, normal placenta, normal tubes and ovaries, his parents have choose to call him Bowen. DESCRIPTION OF PROCEDURE The patient was taken to the Operating Room where she was placed in the sitting position and spinal anesthesia was administered without difficulty. She was then placed in the dorsal supine position with a leftward tilt, prepped and draped in the usual sterile fashion. After Thakur catheter was inserted to gravity drainage. Her vagina was prepped with Betadine. She received Azithromycin 500 mg IV in addition to cefoxitin 2 grams IV prior to skin incision. The patient had SCDs in place for the entire case. Once the level of anesthesia was determined to be adequate, a Pfannenstiel skin incision was made with the scalpel, and the underlying subcutaneous tissue was dissected using Bovie electrocautery. Once the rectus fascia was reached, the rectus fascia was nicked in the midline with the scalpel and the incision was extended laterally with curved Aragon scissors. Two Migue clamps were applied to the inferior aspect of this incision and the rectus muscle was dissected off of the overlying rectus fascia with blunt technique and Bovie electrocautery. A similar technique was carried out on the superior aspect of the same incision. The rectus muscles were then in the midline, and the peritoneum was entered bluntly and stretched to allow placement of the bladder blade to retract the bladder away from the operative field. The vesicouterine fold was tented up and incised with Metzenbaum scissors and the bladder flap was created digitally and the bladder blade was reinserted. A scalpel was used to incise the lower uterine segment in a transverse fashion. Upon entry into the uterine incision was extended and the amniotic sac was then ruptured and a single-gloved hand placed into the uterine cavity. The head was grasped, directed upward and through the incision with the assistance of fundal pressure, followed by shoulders, trunk and extremities. The cord was doubly clamped and cut and the infant was handed off to the waiting pediatric team. The uterus was then extracted using a combination of gentle cord traction and fundal massage. The uterine excision was reapproximated with a running locked suture of #0-Vicryl, followed by an imbricating suture of #0-Vicryl in a horizontal mattress fashion. Any additional bleeding sites were made hemostatic using a [id number] suture of #0-Vicryl. Attention was turned to the patient's right fallopian tube, it was identified, followed out to the fimbriated end, and a LigaSure electrocautery device was used to clamp, cut and incise along the mesosalpinx up to the level of the uterine cornua. The LigaSure device was then placed across the fallopian tube at the junction with the uterine cornua and clamped, cauterized and excised. It was passed off the field. A similar technique was carried out on the contralateral side, both pedicles were noted to be hemostatic. The uterus was then returned to the abdomen. The paracolic gutters cleared of all clots and debris. The abdominal wall and the bladder flap were carefully inspected and noted to be hemostatic. The abdominal peritoneum was reapproximated with a running suture of #2-0 Vicryl. The rectus fascia was then closed with a running suture of #0-Vicryl extending from the lateral margins and overlapping in the midline. The subcutaneous tissue was irrigated with sterile normal saline and space closed with running suture of #2-0 Vicryl. The skin was reapproximated with a subcuticular suture of #4-0 Vicryl on a Alireza needle. The skin was sealed with skin glue. The uterus was massaged for copious amounts of clots. The uterine tone was firm as the patient was transferred to the Recovery Area. All sponge, lap, and needle counts were correct x2.
--- NOTE | 2018-01-30 07:50 | W.PM.PROGNOT ---
Assessment and Plan (1) S/P section: Current visit: Yes Status: Acute Ok to discharge home this morning. Plan for follow up in the clinic in 2 weeks for incision check, 6 weeks for visit, and glucola at 6 weeks to rule out Type II DM Subjective Interval history since last seen: Doing well. Pain well controlled. Ambulatory Desires discharge home. Tolerating regular diet. Objective Objective Clinical Data: Vital Signs Pain Level 7 01/29/18 15:50 Laboratory Results WBC 9.66 k/cumm (4.4-10.8) 01/28/18 06:40 RBC 3.02 m/cumm (4.00-5.20) L 01/28/18 06:40 Hgb 9.1 g/dL (12.0-15.5) L 01/28/18 06:40 Hct 27.7 % (36.0-46.0) L 01/28/18 06:40 MCV 91.7 fL (80-95) 01/28/18 06:40 MCH 30.1 pg (27.0-33.0) 01/28/18 06:40 MCHC 32.9 g/dL (32.0-36.0) 01/28/18 06:40 RDW 13.6 % (11.7-14.6) 01/28/18 06:40 Plt Count 144 x1000/uL (130-400) 01/28/18 06:40 MPV 10.1 fL (8.0-11.0) 01/28/18 06:40 Patient ABO/Rh O Positive 01/24/18 20:46 Antibody Screen Negative 01/24/18 20:46
--- NOTE | 2018-01-30 07:55 | W.PM.DSUDISC ---
Discharge Plan Discharge Details Reason For Visit: PAZ INDUCTION Admit Date/Time: 01/24/18 18:00 Admit Provider: Sue Lockhart Attending Provider: Sue Lockhart Primary Care Provider: Ayana Colunga Home Meds and New Rx's Prescriptions: No Action blood-glucose meter [Accu-Chek Guide Glucose Meter] misc .ROUTE .MEDSUPPLY Qty: 1 RF: 0 lancets [Accu-Chek Fastclix Lancet Drum] misc .ROUTE .MEDSUPPLY Qty: 50 RF: 0 blood sugar diagnostic [Accu-Chek SmartView Test Strip] strip .ROUTE .MEDSUPPLY Qty: 100 RF: 2 vit-iron fum-folic ac 1 EACH tablet 1 ea PO DAILY RF: 0 promethazine 25 MG tablet 25 mg PO Q6H PRN Qty: 30 RF: 0 sertraline 100 MG tablet 100 mg PO DAILY 30 Days Qty: 30 RF: 11 insulin lispro [Humalog KwikPen Insulin] 100 unit/mL insulin pen 14 unit SC AC RF: 0 insulin NPH isoph U-100 human [Humulin N NPH Insulin KwikPen] 100 unit/mL (3 mL) insulin pen 18 unit SC BID RF: 0 acetaminophen [Acetaminophen Extra Strength] 500 MG tablet 1,000 mg PO DAILY RF: 0 DS: Diagnosis Discharge Diagnosis (1) S/P section: Status: Acute (2) Gestational diabetes requiring insulin: Status: Acute
[2018-01-30] MEDS: Docusate Sodium 100 MG CAP PO (08:44)
== END 2018-01-30 11:22 | disposition home or self-care (01) | DRG 785 ==
PROVIDERS: Admitting Provider Obstetrics & Gynecology; PCP Nurse Practitioner Family; Visit Provider Obstetrics & Gynecology Gynecology
PROC: 10D00Z1 Extraction of Products of Conception, Low, Open Approach (ICD-10-PCS; CPT 59514; principal; 2018-01-27 10:30)
DX: O24.424 Gestational diabetes mellitus in childbirth, insulin controlled (principal); Z37.0 Single live birth; Z3A.38 38 weeks gestation of pregnancy; O64.8XX0 Obstructed labor due to other malposition and malpresentation, not applicable or unspecified; O62.1 Secondary uterine inertia; O61.0 Failed medical induction of labor; O61.1 Failed instrumental induction of labor; Z79.4 Long term (current) use of insulin; O99.344 Other mental disorders complicating childbirth; F25.9 Schizoaffective disorder, unspecified; O99.824 Streptococcus B carrier state complicating childbirth; Z30.2 Encounter for sterilization; O75.89 Other specified complications of labor and delivery
CPT/HCPCS: 59514; 58611; 85027; 86850; 86900; 86901; 99222; 99233; NC; 59200; 88302; J0456; J0690; J1200; J1885; J2210; J2270; J2405; J3010; J3410; J3490

== ENCOUNTER 2018-03-08 01:38 | Outpatient (CLI) | payer MEDICAID, SELFPAY | END 2018-03-08 01:58 | PROVIDERS: PCP Nurse Practitioner Family; Visit Provider Obstetrics & Gynecology Gynecology | DX: O24.414 Gestational diabetes mellitus in pregnancy, insulin controlled (principal) | CPT/HCPCS: 82951 ==

== ENCOUNTER 2018-05-29 16:53 | Emergency (ER) | payer MEDICAID, SELFPAY ==
[2018-05-29 17:08] VITALS: BP 145/90; PULSE 93; RESP 16; TEMP 36.5; O2SAT 97
--- NOTE | 2018-05-29 17:16 | DI.RAD_ITS ---
SYMPTOM/DIAGNOSIS: TRAUMA, FELL, PAIN RIGHT ELBOW: Three views. No acute fracture or dislocation is present.
--- NOTE | 2018-05-29 17:19 | ED.GENADUL_ITS ---
Discharge Plan Disposition Patient Disposition: HOME Condition: Stable Discharge Details Chief Complaint: Orthopedic Clinical Impression: Contusion of elbow, right Reason For Visit: right elbow pain Primary Care Provider: Ayana Colunga ED Provider: Samy Gann Home Meds and New Rx's Prescriptions: Continued sertraline 100 mg tablet 100 mg PO DAILY Qty: 90 RF: 4 acetaminophen [Acetaminophen Extra Strength] 500 MG tablet 1,000 mg PO DAILY RF: 0 Discharge Instructions Instructions: Contusion in Adults (ED) Additional Instructions: You may continue to use [id number] acetaminophen as needed for pain control, apply ice as needed, and resume activity as tolerated by discomfort. If not improving over next couple weeks follow-up with your primary care provider for reassessment as needed. Referrals: Ayana Colunga, FISH CUTTING MACHINE OPERATOR [Primary Care Provider] - (As needed for reassessment) Discharge Data Discharge Date/Time-TO BE ENTERED AT DEPARTURE: 05/29/18 18:17 Medical Decision Making Patient presenting the emergency department after trip and fall landing on right elbow. Patient denies any other injury or trauma. Patient has tenderness and small abrasion to the olecranon process and some tenderness to medial epicondyle otherwise negative exam. Given pain to bony process after fall do feel that radiological imaging is needed to rule out acute fracture. Pending results patient given acetaminophen for pain control. Review of radiological imaging and radiologist interpretation shows no acute fracture. Patient diagnosed with contusion and encouraged to continue to use [id number] pain medication and ice as needed. Return precautions discussed. After discussion of diagnosis and plan of care patient has no further needs, questions, or concerns and states clear understanding to return to the emergency department for any worsening symptoms. HPI General Mode of arrival: ambulatory . Date/Time Provider Initiated Documentation: 05/29/18 17:13 . Limitations to Documentation: no limitations . Information obtained by: patient and RN notes reviewed . History of Present Illness 27 year old F presents to the emergency department with the chief complaint of Fall, right elbow injury, described as moderate, with intensity rated at 7. Quality is described as sharp, and is localized to the right and upper extremity. Patient started experiencing this hour(s) (1) and it has been constant. No relieving factors improve symptom(s), Movement worsens symptoms . Patient notes no other symptoms.. Patient did receive the following treatments prior to arrival, none Related Data Home Medications Medication Instructions Recorded Confirmed acetaminophen [Acetaminophen Extra 1,000 mg PO DAILY 06/19/17 04/05/18 Strength] sertraline 100 mg tablet 100 mg PO DAILY #90 tab 01/30/18 05/29/18 Previous Rx's Medication Instructions Recorded sertraline 100 mg tablet 100 mg PO DAILY #90 tab 01/30/18 Allergies Allergy/AdvReac Type Severity Reaction Status Date / Time pineapple Allergy Severe Anaphylaxsi Verified 05/29/18 17:14 s Penicillins AdvReac Intermediate Other (See Verified 05/29/18 17:14 Comment) General Stated Complaint: Orthopedic JULIETA: 4 Review of Systems Cardiovascular Denies syncope Musculoskeletal Reports as per HPI, Denies numbness and Denies tingling Integumentary/Breasts Denies rash and Denies sores Neurologic Denies syncope, Denies numbness and Denies tingling PFSH Medical History Schizoaffective disorder (Chronic) Poor dentition (Chronic 06/20/17) Panic disorder (Chronic 03/04/16) BMI 39.0-39.9,adult (Chronic 06/28/17) Failed induction of labor (Ruled-out) Surgical History S/P section (Resolved) Tooth extraction (Resolved) Family History Mother Diabetes Essential hypertension Personal history of malignant neoplasm Father Diabetes Essential hypertension Heart disease Hyperlipidemia Myocardial infarction Sister No problems noted. Sister No problems noted. Sister No problems noted. Maternal Uncle No problems noted. Maternal Uncle Mental disorder Brother Anencephaly Brother Heart disease Brother No problems noted. Other Asthma Social History household members: family and other housing: other details: BF lives in [place]. Pt lives with 2 children in [place]. marital status details: Boyfriend is Dayne. They have been together 2 years lives independently: Yes number of children: 2 highest education level completed: some college, no degree current occupational status: unemployed sexually active: Yes what type of physical activity do you participate in: none Smoking and Tabacco status: Never alcohol intake: former substance use type: does not use kalyan/episcopal: Tenriism Seatbelt use: sometimes additional social history: 01/2018 Tamara Milian PC/S. Female Reproductive History Menstrual control method: permanent sterilization (at time of primary delivery 01/29/18) Exam Const General: cooperative and no acute distress Orientation: alert, awake and oriented x3 Resp Effort & Inspection: normal respiratory effort and able to speak in complete sentences Cardio Rate: regular rate Rhythm: regular rhythm Extrem Right upper extremity: shoulder/upper arm Details: normal to inspection, axillary nerve sensory function normal and normal ROM; no tenderness, elbow/forearm Details: tenderness Location: of the olecranon and of the medial epicondyle; not of the mid-shaft forearm, normal ROM, abrasion (Olecranon process) and distal pulses intact; no swelling and no deformity and wrist Details: normal to inspection; no tenderness Course Vital Signs Temperature 36.5 C 05/29/18 17:08 Pulse 93 H 05/29/18 17:08 Respiratory Rate 16 05/29/18 17:08 Blood Pressure 145/90 H 05/29/18 17:08 Pulse Oximetry 97 05/29/18 17:08 Temperature 36.5 C 05/29/18 17:08 Temperature Source Temporal Artery Scan 05/29/18 17:08 Pulse 93 H 05/29/18 17:08 Respiratory Rate 16 05/29/18 17:08 Respiratory Effort 05/29/18 17:12 Blood Pressure 145/90 H 05/29/18 17:08 Pulse Oximetry 97 05/29/18 17:08 Oxygen Delivery Method Room Air 05/29/18 17:08 Oxygen Flow Rate 0 05/29/18 17:08 Pain Level 7 05/29/18 17:08
[2018-05-29] MEDS: Acetaminophen 325 MG TAB 650 MG PO (17:56)
--- NOTE | 2018-05-29 18:12 | DI.VRAD_ITS ---
EXAM: XR Right Elbow Complete, 3 or more Views EXAM DATE/TIME: 05/29/2018 5:18 PM CLINICAL HISTORY: 27 years old, female; Injury or trauma; Fall; Initial encounter; Blunt trauma (contusions or hematomas; Elbow; Right TECHNIQUE: XR Right elbow, 3 or more views. COMPARISON: No relevant prior studies available. FINDINGS: Bones/joints: Normal. There is no evidence of acute fracture.There is no evidence of malalignment or dislocation. Soft tissues: Normal. IMPRESSION: No acute findings. Dictated and Authenticated by: Edward Thornton MD. Ordering:DONNIE Pablo MD
[2018-05-29 18:16] VITALS: BP 145/90; PULSE 93; RESP 16; TEMP 36.5; O2SAT 97
== END 2018-05-29 18:17 | disposition home or self-care (01) ==
PROVIDERS: Emergency Provider Nurse Practitioner Family; PCP Nurse Practitioner Family
DX: S50.01XA Contusion of right elbow, initial encounter (principal); W01.0XXA Fall on same level from slipping, tripping and stumbling without subsequent striking against object, initial encounter
CPT/HCPCS: 81025; 99283; 73080; 99282

== ENCOUNTER 2018-06-20 11:09 | Outpatient (CLI) | payer MEDICAID, SELFPAY ==
--- NOTE | 2018-06-20 11:16 | DI.RAD_ITS ---
SYMPTOM/DIAGNOSIS: F/U RIGHT ELBOW: A nondisplaced fracture of the radial head is demonstrated. There is an apparent joint effusion. There is no evidence of a dislocation.
== END 2018-06-20 11:29 ==
PROVIDERS: PCP Nurse Practitioner Family; Visit Provider Orthopaedic Surgery
DX: S52.124D Nondisplaced fracture of head of right radius, subsequent encounter for closed fracture with routine healing (principal); M25.421 Effusion, right elbow
CPT/HCPCS: 73080

== ENCOUNTER 2018-08-31 15:35 | Outpatient (CLI) | payer MEDICAID, SELFPAY ==
[2018-08-31 16:09] LABS: HCG Quant, Pregnancy 1 mIU/mL (1-3)
== END 2018-08-31 15:55 ==
PROVIDERS: PCP Nurse Practitioner Family; Visit Provider Obstetrics & Gynecology Gynecology
DX: N92.6 Irregular menstruation, unspecified (principal)
CPT/HCPCS: 36415; 84702

== ENCOUNTER 2018-12-16 19:02 | Emergency (ER) | payer MEDICAID, SELFPAY ==
[2018-12-16 19:14] VITALS: BP 135/73; PULSE 84; RESP 16; TEMP 36.7; O2SAT 97
--- NOTE | 2018-12-16 19:26 | ED.GENADUL_ITS ---
Discharge Plan Disposition Patient Disposition: HOME Condition: Good Discharge Details Chief Complaint: GenMedical Clinical Impression: Viral illness Primary Care Provider: Ayana Colunga ED Provider: Tiana Aguilar Home Meds and New Rx's Prescriptions: New benzonatate [Tessalon Perles] 100 mg capsule 100 mg PO TID PRN (Reason: cough) Qty: 14 RF: 0 Continued sertraline 100 mg tablet 100 mg PO DAILY Qty: 90 RF: 4 acetaminophen [Acetaminophen Extra Strength] 500 MG tablet 1,000 mg PO DAILY RF: 0 Discharge Instructions Instructions: Viral Syndrome (ED) Additional Instructions: Push fluids by mouth. Motrin or Tylenol for soreness if needed. Consider Cepacol lozenge for comfort. Warm salt water gargles. Increase vitamin C. Cough medication as prescribed if needed Rest activities as tolerated. Full throat culture pending. We will call and arrange antibiotics if this returns positive. Your initial rapid strep testing was negative. Recheck if not improving in the next 5 days with primary care doctor Recheck for any difficulty breathing, worsening symptoms, elevated fevers greater than 101.5 or if needed sooner Medical Decision Making Patient presents with 1 days complaint of sore throat and cough. Minimally productive cough with no associated fever or difficulty breathing shortness of breath or wheezing. Vital signs are stable. Initial strep testing is negative. Patient with a sick child at home as well. Very likely this patient is expensing a viral syndrome. Tessalon Perles provided. Counseled regarding appropriate care and treatment. Precautions recommended for which she should return or follow-up with primary care doctor. Full throat culture pending for which we will follow-up if returns positive. Patient reports understanding. HPI General Date/Time Provider Initiated Documentation: 12/16/18 19:22 . HPI Narrative: Patient presents for complaints of 1 day of sore throat in conjunction with mild nasal congestion and cough. Occasional green sputum with cough. No associated difficulty breathing or shortness of breath or wheezing. Patient denies any nausea or vomiting. Eating and drink without difficulty. Denies measured fever or chills. Patient reports mild malaise. No associated headache or dizziness. Patient does have a [id number] child at home with some nasal congestion. Otherwise no voice change or trismus. Related Data Home Medications Medication Instructions Recorded Confirmed acetaminophen [Acetaminophen Extra 1,000 mg PO DAILY 06/19/17 12/16/18 Strength] sertraline 100 mg tablet 100 mg PO DAILY #90 tab 01/30/18 12/16/18 benzonatate [Tessalon Perles] 100 mg PO TID PRN #14 cap 12/16/18 Previous Rx's Medication Instructions Recorded sertraline 100 mg tablet 100 mg PO DAILY #90 tab 01/30/18 benzonatate [Tessalon Perles] 100 mg PO TID PRN #14 cap 12/16/18 Allergies Allergy/AdvReac Type Severity Reaction Status Date / Time pineapple Allergy Severe Anaphylaxsi Verified 08/31/18 15:09 s Penicillins AdvReac Intermediate Nausea/elevated Verified 08/31/18 15:09 temp General Stated Complaint: GenMedical JULIETA: 3 Review of Systems Review of Systems Narrative: CONSTITUTIONAL: The patient denies fevers, chills. EYES: Denies vision changes, blurry vision, or eye pain. ENT: Denies hearing changes, tinnitus, vertigo. Sore throat. CARDIAC: Denies chest pain, SOB. RESPIRATORY: Cough present. Denies difficulty breathing. GASTROINTESTINAL: Denies abdominal pain, changes in bowel, vomiting or nausea. GENITOURINARY: Denies dysuria, or frequency of urination. MUSCULOSKELETAL: Denies Joint pain, gait changes. NEUROLOGIC: Denies headaches, Denies focal weakness. Denies numbness. INTEGUMENT: Denies rashes. PSYCHIATRIC: Denies behavior changes. Denies anxiety or depression. ENDOCRINOLOGY: Denies fatigue. PSYCHIATRY: Denies depression, agitation or anxiety [facility] Medical History BMI 39.0-39.9,adult (Chronic 06/28/17) Failed induction of labor (Ruled-out) Panic disorder (Chronic 03/04/16) Dx'ed Dr. Huang [facility] Poor dentition (Chronic 06/20/17) dental extractions. 06/2017 Rx for tooth abscess. Schizoaffective disorder (Chronic) Surgical History S/P section (Resolved) Doing well. Will continue pelvic rest and no heavy lifting x 6 weeks. Will check 3hr GTT dring her 6 week check in 4 wks. Pt instructed to make am appointment and come in fasting. Tooth extraction (Resolved) Family History Mother Diabetes Essential hypertension Personal history of malignant neoplasm Dx'ed 36 Stage 4 breast CA NEG BRCA 1& 2 Father Diabetes Essential hypertension Heart disease Hyperlipidemia Myocardial infarction Sister No problems noted. Sister No problems noted. Sister No problems noted. Maternal Uncle , Colon CA at age 35. No problems noted. Maternal Uncle , Pneumonia Mental disorder Schizophrenia Brother Anencephaly at Brother Heart disease - Left hypoplastic heart Brother No problems noted. Other Asthma Social History Smoking/Tobacco Use Status: Never Alcohol Intake: former Drug use: Never Substance use type: does not use Household members: family and other Housing: other Details: BF lives in [place]. Pt lives with 2 children in [place]. Number of Children: 2 Sexually active: Yes What type of physical activity do you participate in: none Lovely/Mandaeism: Nondenominational Seatbelt use: sometimes Do you feel safe in your relationship?: Yes Additional Social history: 01/2018 Tamara Wiseman. PC/S. Female Reproductive History Menstrual control method: permanent sterilization (at time of primary delivery 01/29/18) History Past Pregnancies Del. Date GA/Weeks # Outcome Route Wgt Sex Labor Lgth Anesthes ia Location [facility] 01/27/18 38 No Successful 3.345 kg Male Sue Lockhart MD Delivery Date: 01/27/18 On 03/02/18 @ 14:09 Alicia Christie LPN induction- maternal diabetes failed induction low transverse Exam Narrative Exam Narrative: CONST: Healthy appearing patient, in no acute distress. Well hydrated. Alert and alert. HENMT: Head nomocephalic, normal to inspection. Atraumatic. Hearing grossly normal. Pharyngeal erythema present without exudate. No peritonsillar abscess present or soft palate swelling. EYES: General normal appearance. Alignment normal. Eyelids normal. Conjunctiva normal. NECK: Normal visual inspection. FROM. Trachea midline. No Midline tenderness. CHEST: Normal insepection of the chest. RESP: Normal respiratory effort. Speaking full sentences. No cough. No audible wheezing. No retractions. CARDIO: No JVD. MUSCULOSKELETAL: Normal Gait. FROM of all extremities. SKIN: Normal. Dry. No rashes. NEURO: Alert and awake. Speech clear. PSYCH: Normal affect. Cooperative. Course Vital Signs Vital signs: Vital Signs Temperature 36.7 C 12/16/18 19:14 Pulse 84 12/16/18 19:14 Respiratory Rate 16 12/16/18 19:14 Blood Pressure 135/73 12/16/18 19:14 Pulse Oximetry 97 12/16/18 19:14 Temperature 36.7 C 12/16/18 19:14 Temperature Source Skin 12/16/18 19:14 Pulse 84 12/16/18 19:14 Respiratory Rate 16 12/16/18 19:14 Respiratory Effort Non-Labored 12/16/18 19:17 Blood Pressure 135/73 12/16/18 19:14 Blood Pressure Position Sitting 12/16/18 19:14 Pulse Oximetry 97 12/16/18 19:14 Oxygen Delivery Method Room Air 12/16/18 19:14 Oxygen Flow Rate 0 12/16/18 19:14
[2018-12-16 19:32] VITALS: RESP 16
--- NOTE | 2018-12-20 19:33 | W.ED.FU ---
Date of service: 12/20/18 Follow Up Plan: Patient strep culture returned positive. She has a penicillin allergy. A prescription was called into her [facility] for azithromycin 500 mg 1 tablet daily for 5 days. The patient was contacted she had been doing well. She denies any significant complaints aside for mild sore throat still.
== END 2018-12-16 19:49 | disposition home or self-care (01) ==
PROVIDERS: Emergency Provider Physician Assistant; PCP Nurse Practitioner Family
DX: J02.8 Acute pharyngitis due to other specified organisms (principal); R05 Cough; R09.81 Nasal congestion; B34.9 Viral infection, unspecified
CPT/HCPCS: 87880; 99282; 87081

== ENCOUNTER 2019-06-24 18:18 | Emergency (ER) | payer MEDICAID, SELFPAY ==
[2019-06-24 18:27] VITALS: BP 141/81; PULSE 92; RESP 16; TEMP 36.5; O2SAT 97
--- NOTE | 2019-06-24 18:30 | DI.RAD_ITS ---
EXAM: XR FOREARM RT CLINICAL HISTORY: Pain after blunt trauma TECHNIQUE: COMPARISON: XR humerus RT from 06/06/2018 XR elbow RT complete from 06/20/2018 FINDINGS: Two views were obtained. The patient has a known radial head fracture well-demonstrated on 06/20 [place]. This is not clearly visible on today's examination. The bones of the forearm are unremarkable i n appearance on today's study. IMPRESSION:
--- NOTE | 2019-06-24 18:35 | ED.GENADUL_ITS ---
Discharge Plan Disposition Patient Disposition: HOME Condition: Improving Discharge Details Chief Complaint: Orthopedic Clinical Impression: Contusion of forearm, right Primary Care Provider: Ayana Colunga ED Provider: Richard Mooney Home Meds and New Rx's Prescriptions: Continued sertraline 100 mg tablet 100 mg PO DAILY Qty: 90 RF: 0 acetaminophen [Acetaminophen Extra Strength] 500 MG tablet 1,000 mg PO DAILY RF: 0 Discharge Instructions Instructions: Contusion in Adults (ED) Additional Instructions: May use removable splint 5 to 10 days as needed for comfort. May use ice 20 minutes at a time applied to area to reduce discomfort. Tylenol and/or ibuprofen as needed for pain. Return to ER for any acute concerns. Medical Decision Making 28-year-old female with blunt trauma to right forearm after a heavy weight of boxed beer was dropped on it at work. She has mid to distal third right forearm tenderness. Differential diagnosis was bony contusion, fracture, syndesmotic injury/strain. Referred for x-ray which does not reveal acute bony injury. Will immobilize for comfort in a removable Velcro splint. She is stable and improving. She understands outpatient management as well as indications for reevaluation. HPI General Mode of arrival: ambulatory . Date/Time Provider Initiated Documentation: 06/24/19 18:24 . Limitations to Documentation: no limitations . Information obtained by: patient . History of Present Illness 28 year old F presents to the emergency department with the chief complaint of Right forearm, described as moderate, Quality is described as dull and constant, and is localized to the right and upper extremity. Patient reports no radiation. Patient started experiencing this minute(s) and it has been constant. No relieving factors improve symptom(s), No exacerbating factors reported . Patient notes denies weakness. Patient did receive the following treatments prior to arrival, none Related Data Home Medications Medication Instructions Recorded Confirmed acetaminophen [Acetaminophen Extra 1,000 mg PO DAILY 06/19/17 06/24/19 Strength] sertraline 100 mg tablet 100 mg PO DAILY #90 tab 02/23/19 06/24/19 Previous Rx's Medication Instructions Recorded sertraline 100 mg tablet 100 mg PO DAILY #90 tab 02/23/19 Allergies Allergy/AdvReac Type Severity Reaction Status Date / Time pineapple Allergy Severe Anaphylaxsi Verified 06/24/19 18:32 s Penicillins AdvReac Intermediate Nausea/elevated Verified 06/24/19 18:32 temp General Stated Complaint: Orthopedic JULIETA: 4 Review of Systems Narrative: No other injury. No weakness or numbness. Patient has otherwise been well. [facility] Medical History BMI 39.0-39.9,adult (Chronic 06/28/17) Failed induction of labor (Ruled-out) Panic disorder (Chronic 03/04/16) Dx'ed Dr. Huang [facility] Poor dentition (Chronic 06/20/17) dental extractions. 06/2017 Rx for tooth abscess. Schizoaffective disorder (Chronic) Social History Smoking/Tobacco Use Status: Never Alcohol Intake: former Drug use: Never Substance use type: does not use Household members: family and other Housing: other Details: BF lives in [place]. Pt lives with 2 children in [place]. Number of Children: 2 Sexually active: Yes What type of physical activity do you participate in: none Lovely/Episcopalian: Rastafarian Seatbelt use: sometimes Do you feel safe in your relationship?: Yes Additional Social history: 01/2018 Tamara Wiseman. PC/S. Female Reproductive History Menstrual control method: permanent sterilization (at time of primary delivery 01/29/18) History Past Pregnancies Del. Date GA/Weeks # Outcome Route Wgt Sex Labor Lgth Anesthes ia Location [facility] 01/27/18 38 No Successful 3.345 kg Male Sue Lockhart MD Delivery Date: 01/27/18 induction- maternal diabetes failed induction low transverse Alicia Christie LPN Exam Narrative Exam Narrative: GEN: awake, alert, oriented 3. Pleasant, well groomed, interactive. HEAD: Normocephalic, atraumatic ENT: Mucous membranes moist, oropharynx unremarkable, External ear exam unremarkable EYES: PERRL, EOMI NECK: Full ROM, no TREVA, no menigismus CHEST/RESP: Nontender, clear to auscultation bilateral, no wheeze/rhonchi/rales CARDIOVASCULAR: RRR, no murmur, rub jesus. 2+ Rad pulse bilateral ABDOMEN: Soft, nontender, no mass. +Bowel sounds EXT: Full ROM, tenderness mid to distal third right forearm without bony deformity. 2+ radial pulse bilaterally. Patient is able to demonstrate normal motor function with radial, median, ulnar nerve. Sensation intact throughout. Neuro: Grossly normal neurologic exam, conversant, interactive. Psych: Speech fluent, thoughts congruent, affect normal Course Vital Signs Vital signs: Vital Signs Temperature 36.5 C 06/24/19 18:27 Pulse 92 H 06/24/19 18:27 Respiratory Rate 16 06/24/19 18:27 Blood Pressure 141/81 H 06/24/19 18:27 Pulse Oximetry 97 06/24/19 18:27 Temperature 36.5 C 06/24/19 18:27 Temperature Source Skin 06/24/19 18:27 Pulse 92 H 06/24/19 18:27 Respiratory Rate 16 06/24/19 18:27 Respiratory Effort 06/24/19 18:27 Blood Pressure 141/81 H 06/24/19 18:27 Blood Pressure Position Sitting 06/24/19 18:27 Pulse Oximetry 97 06/24/19 18:27 Oxygen Delivery Method Room Air 06/24/19 18:27 Oxygen Flow Rate 0 06/24/19 18:27 Pain Level 7 06/24/19 18:34
--- NOTE | 2019-06-24 18:54 | DI.VRAD_ITS ---
PROCEDURE INFORMATION: Exam: XR Right Forearm Exam date and time: 06/24/2019 6:44 PM Age: 28 years old Clinical indication: Pain; Lower or forearm; Right TECHNIQUE: Imaging protocol: XR Right forearm. Views: 2 views. COMPARISON: CR XR elbow RT complete 06/20/2018 11:11 AM FINDINGS: Bones/joints: The nondisplaced intra-articular fracture involving the articular surface of the right radial head evident on recent radiographs of the right elbow is not clearly visible on the current projections of the right forearm. The remainder of the right radius and ulna are intact with no other fractures detected. Soft tissues: Unremarkable. IMPRESSION: Nondisplaced intra-articular fracture of the right radial head seen on recent comparison radiographs is not clearly visible on the current projections and no other right forearm fracture is detected. Dictated and Authenticated by: Devyn Mathur MD. Ordering:SANJEEV Ramos MD
== END 2019-06-24 19:05 | disposition home or self-care (01) ==
PROVIDERS: Emergency Provider Emergency Medicine; PCP Nurse Practitioner Family
DX: S50.11XA Contusion of right forearm, initial encounter (principal); W20.8XXA Other cause of strike by thrown, projected or falling object, initial encounter; Y99.0 Civilian activity done for income or pay
CPT/HCPCS: 99283; 73090; L3908

== ENCOUNTER 2019-07-21 10:42 | Emergency (ER) | payer MEDICAID, SELFPAY ==
--- NOTE | 2019-07-21 10:44 | ED.GENADUL_ITS ---
Discharge Plan Disposition Patient Disposition: HOME Condition: Stable Discharge Details Chief Complaint: DentalOral Clinical Impression: Pain, dental, Dental caries Primary Care Provider: Ayana Colunga ED Provider: Maia Jose Home Meds and New Rx's Prescriptions: New clindamycin HCl 150 mg capsule 450 mg PO TID 7 Days Qty: 63 RF: 0 Continued sertraline 100 mg tablet 100 mg PO DAILY Qty: 90 RF: 0 acetaminophen [Acetaminophen Extra Strength] 500 MG tablet 1,000 mg PO DAILY RF: 0 Discharge Instructions Instructions: Dental Caries (ED), Toothache (ED) Additional Instructions: Drink plenty of fluids and get plenty of rest. Alternate tylenol and motrin as needed and directed for pain. Take the antibiotics until finished. Call your dentist on Tuesday morning to schedule a follow-up appointment for reevaluation when the office opens. Return to the emergency department with any worsening or new concerning symptoms. Stand Alone Forms: Work Release Discharge Data Discharge Physician: Maia Jose Medical Decision Making 28-year-old female presents with right upper dental pain with recent dental fracture over the last 2 days. Patient appears nontoxic. Speaking in full sentences. Airway intact. She has a dental fracture noted to right upper most posterior tooth with only lingual wall remaining with tenderness to palpation of the surrounding area. Dental caries and poor dentition throughout. No dental abscess noted. She is requesting a prescription for clindamycin. She has a history of tubal ligation. Advised to alternate Tylenol and Motrin, call her dentist on Tuesday to arrange follow-up when office opens. Usual and customary return precautions given prior to discharge. Medical Records Medical records reviewed: Yes I reviewed the patient's medical records. HPI General Mode of arrival: ambulatory . Date/Time Provider Initiated Documentation: 07/21/19 10:43 . Limitations to Documentation: no limitations . Information obtained by: patient . HPI Narrative: Patient is a 28-year-old female who presents with right upper dental pain since yesterday. Patient states she has a history of poor dentition and that her right upper tooth has been broken before but sustained a worsening fracture yesterday. She denies any known fever, sore throat. She does feel she is developing some right-sided facial swelling. She has been taking Tylenol with some relief. She states she has a history of allergy to penicillin as a child and is unsure of her reaction but states that she usually takes clindamycin for her dental infections. She states she is followed by dentist at [facility]. Related Data Home Medications Medication Instructions Recorded Confirmed acetaminophen [Acetaminophen Extra 1,000 mg PO DAILY 06/19/17 07/21/19 Strength] sertraline 100 mg tablet 100 mg PO DAILY #90 tab 02/23/19 07/21/19 clindamycin HCl 450 mg PO TID 7 Days #63 cap 07/21/19 Previous Rx's Medication Instructions Recorded sertraline 100 mg tablet 100 mg PO DAILY #90 tab 02/23/19 clindamycin HCl 450 mg PO TID 7 Days #63 cap 07/21/19 Allergies Allergy/AdvReac Type Severity Reaction Status Date / Time pineapple Allergy Severe Anaphylaxsi Verified 07/21/19 10:50 s Penicillins AdvReac Intermediate Nausea/elevated Verified 07/21/19 10:50 temp General JULIETA: 4 Review of Systems All systems reviewed & are unremarkable except as noted in HPI and below Constitutional Constitutional: Reports as per HPI, Denies chills and Denies fever(s) Eyes Eyes: Denies blurry vision ENT Ears, Nose, Mouth, and Throat: Denies dizziness, Denies sore throat and Denies throat swelling Cardiovascular Cardiovascular: Denies chest pain and Denies dyspnea Respiratory Respiratory: Denies cough and Denies dyspnea Gastrointestinal Gastrointestinal: Denies abdominal pain, Denies diarrhea and Denies vomiting Genitourinary Genitourinary: Denies hematuria and Denies dysuria Musculoskeletal Musculoskeletal: Denies back pain and Denies numbness Integumentary/Breasts Skin/Breast: Denies lesions and Denies rash Neurologic Neurologic: Denies dizziness, Denies localized weakness and Denies numbness Allergic/Immunologic Allergic/Immunologic: Denies throat swelling [facility] Social History Smoking/Tobacco Use Status: Never Alcohol Intake: former Drug use: Never Substance use type: does not use Household members: family and other Housing: other Details: BF lives in [place]. Pt lives with 2 children in [place]. Number of Children: 2 Sexually active: Yes What type of physical activity do you participate in: none Lovely/Baptism: Cheondoism Seatbelt use: sometimes Do you feel safe in your relationship?: Yes Female Reproductive History Menstrual control method: permanent sterilization (at time of primary delivery 01/29/18) History Past Pregnancies Del. Date GA/Weeks # Outcome Route Wgt Sex Labor Lgth Anesthes ia Location Prov Complic 01/27/18 38 No Successful 3.345 kg Male Sue Lockhart MD Delivery Date: 01/27/18 induction- maternal diabetes failed induction low transverse Alicia Christie LPN Exam Const General: cooperative, healthy appearing and no acute distress HENME Head: normal to inspection Ears: hearing grossly normal bilaterally, external ears normal and TM's normal bilaterally Teeth and gingiva: caries and poor dentition Teeth image: 1. Tenderness to palpation. Decay noted around tooth. Only part of tooth remaining is lingual wall. There is mild surrounding edema but no erythema. There is no abscess noted. Eyes General: appearance normal, both eyes and all related structures Neck Neck: normal visual inspection Resp Effort & Inspection: normal respiratory effort and able to speak in complete sentences Cardio Rate: regular rate Skin General skin exam: no rashes or lesions noted Neuro General: patient alert, patient awake and patient oriented x3 Motor: muscle tone normal throughout Extrem General: normal to inspection and full ROM Psych Appearance: grossly normal Affect: normal affect
[2019-07-21 10:45] VITALS: BP 144/95; PULSE 83; RESP 16; TEMP 36.7; O2SAT 96
== END 2019-07-21 11:00 | disposition home or self-care (01) ==
PROVIDERS: Emergency Provider Physician Assistant; PCP Nurse Practitioner Family
DX: K08.89 Other specified disorders of teeth and supporting structures (principal); K02.9 Dental caries, unspecified
CPT/HCPCS: 99283

== ENCOUNTER 2019-09-19 16:24 | Emergency (ER) | payer MEDICAID, SELFPAY ==
[2019-09-19 16:31] VITALS: BP 164/92; PULSE 99; RESP 16; TEMP 37.1; O2SAT 8
[2019-09-19] MEDS: Ibuprofen 600 MG TAB PO (16:50)
--- NOTE | 2019-09-19 16:50 | ED.GENADUL_ITS ---
Discharge Plan Disposition Patient Disposition: HOME Condition: Stable Discharge Details Chief Complaint: Orthopedic Clinical Impression: Left ankle sprain Primary Care Provider: Ayana Colunga ED Provider: Adele Kim Home Meds and New Rx's Prescriptions: No Action Nexplanon 68 mg implant 1 implant SBD ONCE RF: 0 sertraline 100 mg tablet 100 mg PO DAILY Qty: 90 RF: 0 acetaminophen [Acetaminophen Extra Strength] 500 MG tablet 1,000 mg PO DAILY RF: 0 Discharge Instructions Instructions: Ankle Sprain (ED) Additional Instructions: No fracture or dislocation noted on x-rays today. Follow up with primary care provider in 3-5 days. Return to ED sooner if any worsening or concerns. Increase oral fluids. Please take Tylenol or Ibuprofen with food every 4-6 hours as needed for pain and swelling. Use crutches and ankle splint as needed for comfort. Toe-touch weight bearing as tolerated for 1 to 2 weeks. Rest, ice, compression, elevation when sitting or laying down. Stand Alone Forms: Work Release Referrals: Ayana Colunga NP [Primary Care Provider] - Discharge Data Discharge Date/Time-TO BE ENTERED AT DEPARTURE: 09/19/19 17:42 Medical Decision Making 28-year-old female presents ED with chief complaint of left ankle pain. Patient was camping prior to arrival stepped off a camper approximately 2-1/2 feet high into a hole fell onto her left side. She reports she heard a crack and snap fell to the ground was helped up. She is nonambulatory in the department, she does have a contusion and swelling noted to her lateral malleolus. She denies any other injuries. She do not take any medications prior to arrival. Patient denies states she has had a history of tubal ligation. Exam: XR Left Ankle Exam date and time: 09/19/2019 5:02 PM Age: 28 years old Clinical indication: Pain; Ankle; Left; Patient HX: Patient fell out of camper. TECHNIQUE: Imaging protocol: XR Left ankle. Views: 3 or more views. COMPARISON: CR LEFT FOOT COMPLETE 12/10/2016 4:05 PM FINDINGS: Bones/joints: No acute fracture or dislocation. Soft tissues: There is no radiopaque foreign body.There is no gas in the soft tissue. Prominent soft tissue swelling over the lateral malleolus. IMPRESSION: Prominent lateral soft tissue swelling Patient placed in a lace up ankle prefabricated splint and given crutches demonstrated use prior to discharge. Instructed on rice, verbalized understanding. This text was generated using [employer] dictation system, please disregard any oddities of phrase or misspellings. HPI General Mode of arrival: wheelchair . Date/Time Provider Initiated Documentation: 09/19/19 16:32 . Limitations to Documentation: no limitations . Information obtained by: patient . HPI Narrative: 28-year-old female presents ED with chief complaint of left ankle pain. Patient was camping prior to arrival stepped off a camper approximately 2-1/2 feet high into a hole fell onto her left side. She reports she heard a crack and snap fell to the ground was helped up. She is nonambulatory in the department, she does have a contusion and swelling noted to her lateral malleolus. She denies any other injuries. She do not take any medications prior to arrival. Patient denies states she has had a history of tubal ligation. Related Data Home Medications Medication Instructions Recorded Confirmed acetaminophen [Acetaminophen Extra 1,000 mg PO DAILY 06/19/17 09/19/19 Strength] sertraline 100 mg tablet 100 mg PO DAILY #90 tab 02/23/19 09/19/19 etonogestrel 68 mg subdermal 1 implant SBD ONCE 08/06/19 09/19/19 implant Previous Rx's Medication Instructions Recorded sertraline 100 mg tablet 100 mg PO DAILY #90 tab 02/23/19 Allergies Allergy/AdvReac Type Severity Reaction Status Date / Time pineapple Allergy Severe Anaphylaxsi Verified 09/19/19 16:35 s Penicillins AdvReac Intermediate Nausea/elevated Verified 09/19/19 16:35 temp General Stated Complaint: Orthopedic JULIETA: 4 Review of Systems All systems reviewed & are unremarkable except as noted in HPI and below Musculoskeletal Musculoskeletal: Reports as per HPI, Reports arthralgias (Left ankle), Reports joint swelling and Reports limited range of motion [facility] Medical History Abnormal uterine bleeding (AUB) (Acute) BMI 39.0-39.9,adult (Chronic 06/28/17) Failed induction of labor (Ruled-out) Nexplanon in place (Acute) 08/2019. To treat abnormal uterine bleeding. Panic disorder (Chronic 03/04/16) Dx'ed Dr. Sal AREVALO Poor dentition (Chronic 06/20/17) dental extractions. 06/2017 Rx for tooth abscess. Schizoaffective disorder (Chronic) Surgical History S/P section (Resolved) 01/29/18 PCD with bilateral tubal sterilization after an unsuccessful induction of labor secondary to gestational diabetes. Tooth extraction (Resolved) Family History Mother Diabetes Essential hypertension Personal history of malignant neoplasm Dx'ed 36 Stage 4 breast CA NEG BRCA 1& 2 Father Diabetes Essential hypertension Heart disease Hyperlipidemia Myocardial infarction Sister No problems noted. Sister No problems noted. Sister No problems noted. Maternal Uncle , Colon CA at age 35. No problems noted. Maternal Uncle , Pneumonia Mental disorder Schizophrenia Brother Anencephaly at Brother Heart disease - Left hypoplastic heart Brother No problems noted. Other Asthma Social History Smoking/Tobacco Use Status: Never Alcohol Intake: former Drug use: Never Substance use type: does not use Household members: family and other Housing: other Details: BF lives in [place]. Pt lives with 2 children in [place]. Number of Children: 2 Sexually active: Yes What type of physical activity do you participate in: none Lovely/Restorationist: Pentecostal Seatbelt use: sometimes Do you feel safe in your relationship?: Yes Female Reproductive History Menstrual control method: permanent sterilization (at time of primary delivery 01/29/18) History Past Pregnancies Del. Date GA/Weeks # Outcome Route Wgt Sex Labor Lgth Anesthes ia Location Prov Complic 01/27/18 38 No Successful 3.345 kg Male Sue Lockhart MD Delivery Date: 01/27/18 induction- maternal diabetes failed induction low transverse Alicia Christie LPN Exam Const General: cooperative and healthy appearing Nutritional Appearance: obese Orientation: alert, awake and oriented x3 Limitations: mental status not altered and no behavioral limitations Resp Effort & Inspection: normal respiratory effort and able to speak in complete sentences Auscultation: clear to auscultation bilaterally Cardio Rate: regular rate Rhythm: regular rhythm Extrem Left lower extremity: ankle Details: tenderness Location: of the lateral malleolus, of the medial malleolus and of the anterior talofibular ligament, swelling Details: laterally and ecchymosis; achilles tendon exam normal Course Vital Signs Vital signs: Vital Signs Temperature 37.1 C 09/19/19 16:31 Pulse 99 H 09/19/19 16:31 Respiratory Rate 16 09/19/19 16:31 Blood Pressure 164/92 H 09/19/19 16:31 Pulse Oximetry 8 L 09/19/19 16:31 Temperature 37.1 C 09/19/19 16:31 Temperature Source Skin 09/19/19 16:31 Pulse 99 H 09/19/19 16:31 Respiratory Rate 16 09/19/19 16:31 Respiratory Effort Non-Labored 09/19/19 16:31 Blood Pressure 164/92 H 09/19/19 16:31 Blood Pressure Position Supine 09/19/19 16:31 Pulse Oximetry 8 L 09/19/19 16:31 Oxygen Delivery Method Room Air 09/19/19 16:31 Oxygen Flow Rate 0 09/19/19 16:31 Pain Level 10 09/19/19 16:35
--- NOTE | 2019-09-19 17:10 | DI.RAD_ITS ---
EXAM: XR ANKLE LT COMPLETE CLINICAL HISTORY: Rule out fracture, fall. TECHNIQUE: 2D digital imaging was performed. COMPARISON: No exams were available for comparison FINDINGS: BONES: No fracture is identified. JOINTS: The ankle mortise is normally aligned. SOFT TISSUE: Swelling over the lateral malleolus. IMPRESSION: Unremarkable radiographs of the right ankle. DATA REPOSITORY: RADIATION DOSE DELIVERED:
--- NOTE | 2019-09-19 17:19 | DI.VRAD_ITS ---
PROCEDURE INFORMATION: Exam: XR Left Ankle Exam date and time: 09/19/2019 5:02 PM Age: 28 years old Clinical indication: Pain; Ankle; Left; Patient HX: Patient fell out of [place]. TECHNIQUE: Imaging protocol: XR Left ankle. Views: 3 or more views. COMPARISON: CR LEFT FOOT COMPLETE 12/10/2016 4:05 PM FINDINGS: Bones/joints: No acute fracture or dislocation. Soft tissues: There is no radiopaque foreign body.There is no gas in the soft tissue. Prominent soft tissue swelling over the lateral malleolus. IMPRESSION: Prominent lateral soft tissue swelling Dictated and Authenticated by: Tyler Washburn MD. Ordering:KARTHIKEYAN Angulo MD
[2019-09-19 17:43] VITALS: BP 164/92; PULSE 99; RESP 16; TEMP 37.1; O2SAT 98
--- NOTE | 2019-09-20 10:48 | NUR.NOTE ---
Nursing Note: Patient called asking about getting a walking boot instead of crutches, because she has a 19month old. [facility] did call earlier and we told them that she could come back to ED for a recheck ED visit or they could write a prescription to [facility] and for her to pick it up there. I reiterated this to her and she is going to call the PCP back for more direction. Netta Dela Cruz.
== END 2019-09-19 17:42 | disposition home or self-care (01) ==
PROVIDERS: Emergency Provider Registered Nurse Emergency; PCP Nurse Practitioner Family
DX: S93.491A Sprain of other ligament of right ankle, initial encounter (principal); W17.2XXA Fall into hole, initial encounter
CPT/HCPCS: 29515; 99283; 73610; E0114; L1902

== ENCOUNTER 2020-05-21 16:29 | Emergency (ER) | payer MEDICAID, SELFPAY ==
[2020-05-21 16:40] VITALS: BP 117/70; PULSE 94; RESP 16; TEMP 37.1; O2SAT 98
--- NOTE | 2020-05-21 16:41 | W.ED.GENAD ---
Discharge Plan Disposition Patient Disposition: HOME Condition: Good Discharge Details Clinical Impression: Contusion of right wrist Primary Care Provider: Ayana Colunga ED Provider: Alaina Villafuerte Home Meds and New Rx's Prescriptions: Continued Nexplanon 68 mg implant 1 implant SBD ONCE RF: 0 ibuprofen 200 mg tablet 600 mg PO Q6H PRNRF: 0 sertraline 100 mg tablet 100 mg PO DAILY Qty: 90 RF: 0 acetaminophen [Acetaminophen Extra Strength] 500 MG tablet 1,000 mg PO DAILY RF: 0 Discharge Instructions Instructions: Contusion in Adults (ED) Additional Instructions: Your x-ray here reassuring, no fracture noted. Please encourage rest, ice, elevation. Tylenol and/or ibuprofen as needed for discomfort. Please use Juan wrap to help with compression. Please follow-up with primary care in 2 weeks if symptoms are not improving. If you develop any new or worsening symptoms to seek care urgently once again. Referrals: Ayana Colunga, [employer]PERATOR [Primary Care Provider] - Medical Decision Making Patient is a pleasant [id number] 29-year-old female presented with chief complaint of right wrist pain. She reports that she has fractured this wrist historically, approximate 2 years ago. She reports today she was sledding with her child when she crashed and landed directly on the right wrist. Denies other injury the time of the incident. Not strike her head. No loss of consciousness. She indicates the distal ulna is area of discomfort. She has good extension. Flexion is slightly limited compared to the contralateral side. Sensation is intact. Good capillary refill and to pulses. No trauma noted elsewhere. Patient is status post tubal ligation. Will obtain x-ray. Will give Tylenol and ibuprofen to help with discomfort. FINDINGS: Bones/joints: Normal. Soft tissues: Normal. IMPRESSION: No acute findings. Discussed the findings with the patient. I encouraged rest, ice, elevation. Tylenol and/or ibuprofen as needed for discomfort. Patient was fitted with Juan wrap to help with compression. Return precautions were discussed. Advise follow-up with primary care in 2 weeks improving. All of her questions and concerns were addressed and she has been in this plan. HPI General Mode of arrival: ambulatory. Date/Time Provider Initiated Documentation: 05/21/20 16:40. Limitations to Documentation: no limitations. Information obtained by: patient and RN notes reviewed. History of Present Illness 29 year old F presents to the emergency department with the chief complaint of right wrist pain, described as moderate and similar to prior episodes (hx of fx over same area 2 years ago), with intensity rated at 7. Quality is described as stabbing, and is localized to the right and upper extremity. Patient reports no radiation. Patient started experiencing this minute(s) (20) and it has been intermittent. Immobilization improves symptom(s), Movement worsens symptoms . Patient notes no other symptoms.. Patient did receive the following treatments prior to arrival, none Related Data Home Medications Medication Instructions Recorded Confirmed acetaminophen [Acetaminophen Extra 1,000 mg PO DAILY 06/19/17 05/21/20 Strength] sertraline 100 mg tablet 100 mg PO DAILY #90 tab 02/23/19 05/21/20 etonogestrel 68 mg subdermal 1 implant SBD ONCE 08/06/19 05/21/20 implant ibuprofen 200 mg tablet 600 mg PO Q6H PRN tab 10/02/19 05/21/20 Previous Rx's Medication Instructions Recorded sertraline 100 mg tablet 100 mg PO DAILY #90 tab 02/23/19 Allergies Allergy/AdvReac Type Severity Reaction Status Date / Time pineapple Allergy Severe Anaphylaxsi Verified 05/21/20 16:52 s Penicillins AdvReac Intermediate Nausea/elevated Verified 05/21/20 16:52 temp General JULIETA: 4 Review of Systems Constitutional Constitutional: Reports as per HPI, Denies chills, Denies fever(s), Denies headache(s) and Denies weakness ENT Ears, Nose, Mouth, and Throat: Denies headache(s) Cardiovascular Cardiovascular: Reports as per HPI Respiratory Respiratory: Reports as per HPI and Denies cough Musculoskeletal Musculoskeletal: Reports as per HPI and Denies tingling Integumentary/Breasts Skin/Breast: Reports as per HPI, Denies rash and Denies wounds Neurologic Neurologic: Reports as per HPI, Denies headache(s), Denies tingling, Denies paresthesias and Denies weakness [facility] Medical History (Updated 05/21/20 @ 17:10 by KEN Ortiz) Abnormal uterine bleeding (AUB) BMI 39.0-39.9,adult (06/28/17) Failed induction of labor Nexplanon in place 08/2019. To treat abnormal uterine bleeding. Panic disorder (03/04/16) Dx'ed Dr. Sal AREVALO Poor dentition (06/20/17) dental extractions. 06/2017 Rx for tooth abscess. Schizoaffective disorder Surgical History S/P section 01/29/18 PCD with bilateral tubal sterilization after an unsuccessful induction of labor secondary to gestational diabetes. Tooth extraction Family History Mother Diabetes Essential hypertension Personal history of malignant neoplasm Dx'ed 36 Stage 4 breast CA NEG BRCA 1& 2 Father Diabetes Essential hypertension Heart disease Hyperlipidemia Myocardial infarction Sister No problems noted. Sister No problems noted. Sister No problems noted. Maternal Uncle , Colon CA at age 35. No problems noted. Maternal Uncle , Pneumonia Mental disorder Schizophrenia Brother Anencephaly at Brother Heart disease - Left hypoplastic heart Brother No problems noted. Other Asthma Social History Smoking/Tobacco Use Status: Never Smoking risk assessment performed?: Yes Alcohol Intake: former Drug use: Never Substance use type: does not use Household members: family and other Housing: other Details: BF lives in [place]. Pt lives with 2 children in [place]. Number of Children: 2 Sexually active: Yes What type of physical activity do you participate in: none Lovely/Zoroastrian: Mandaeism Seatbelt use: sometimes Do you feel safe at home: Yes Do you feel safe in your relationship?: Yes Female Reproductive History Menstrual control method: permanent sterilization (at time of primary delivery 01/29/18) History Past Pregnancies Del. Date GA/Weeks # Outcome Route Wgt Sex Labor Lgth Anesthesia Location [facility] 01/27/18 38 No Successful [phone] g Male Sue Lockhart MD Delivery Date: 01/27/18 induction- maternal diabetes failed induction low transverse Alicia Christie LPN Exam Const General: cooperative, healthy appearing, comfortable, no acute distress, well developed and well groomed Nutritional Appearance: well nourished and overweight Orientation: alert and awake Resp Effort & Inspection: normal respiratory effort, able to speak in complete sentences and no respiratory distress Cardio Rate: regular rate Rhythm: regular rhythm Skin General skin exam: no rashes or lesions noted Lesions: no lesions Rashes: no rashes Trauma: no lacerations or abrasions Neuro General: patient alert and patient awake Cognition: normal cognition Speech: speech normal Gait: normal gait Motor: muscle tone normal throughout Sensory Exam: no sensory deficits noted Extrem Elbow/forearm/wrist images: 1. Area of discomfort. No swelling. She has good extension. Limited flexion secondary to pain over the ulna. No ecchymosis, break in the skin. Old scar is noticed. Appears to feel well. No snuffbox tenderness, no pain with axial loading of the thumb. She is good range of motion of all of her digits. Sensation is intact. 2+ distal pulses. No pain proximal to this. Full range of motion of the elbow. Psych Appearance: grossly normal and well kempt Mental Status: mental status grossly normal Speech and Movement: speech and movement normal
--- NOTE | 2020-05-21 16:46 | DI.RAD_ITS ---
EXAM: XR WRIST RT COMPLETE CLINICAL HISTORY: pain over ulna after fall on it sledding. TECHNIQUE: 2D digital imaging was performed. COMPARISON: No exams were available for comparison FINDINGS: There is no evidence of fracture or dislocation. No significant ulnar variance. Bone density is nor mal. No osseous lesions. IMPRESSION: DATA REPOSITORY: RADIATION DOSE DELIVERED:
[2020-05-21] MEDS: Acetaminophen 500 MG TAB 1000 MG PO (16:50)
[2020-05-21] MEDS: Ibuprofen 600 MG TAB PO (16:50)
--- NOTE | 2020-05-21 17:09 | DI.VRAD_ITS ---
PROCEDURE INFORMATION: Exam: XR Right Wrist Exam date and time: 05/21/2020 5:03 PM Age: 29 years old Clinical indication: Injury or trauma; Fall; Blunt trauma (contusions or hematomas); Wrist; Right TECHNIQUE: Imaging protocol: XR Right wrist. Views: 3 or more views. COMPARISON: No relevant prior studies available. FINDINGS: Bones/joints: Normal. Soft tissues: Normal. IMPRESSION: No acute findings. Dictated and Authenticated by: Evy Iraheta MD. Ordering:ALEXANDRO Foley MD
== END 2020-05-21 17:30 | disposition home or self-care (01) ==
PROVIDERS: Emergency Provider Physician Assistant; PCP Nurse Practitioner Family
DX: S60.211A Contusion of right wrist, initial encounter (principal); V00.221A Fall from sled, initial encounter
CPT/HCPCS: 99284; 73110; 99283

== ENCOUNTER 2020-08-07 02:59 | Outpatient (CLI) | payer MEDICAID, SELFPAY ==
[2020-08-08 15:57] LABS: COVID-19 RT-PCR UVMMC Result Positive (Negative)
== END 2020-08-07 03:00 | disposition home or self-care (01) ==
LOC: LBO 02:59
PROVIDERS: PCP Nurse Practitioner Family; Visit Provider Nurse Practitioner Family
DX: Z20.822 Contact with and (suspected) exposure to COVID-19 (principal)
CPT/HCPCS: U0003

== ENCOUNTER 2021-01-28 02:32 | Outpatient (CLI) | payer MEDICAID, SELFPAY ==
--- NOTE | 2021-01-28 07:00 | DI.RAD_ITS ---
Exam(s) XR HUMERUS LT EXAM: XR HUMERUS LT CLINICAL HISTORY: nexplanon localization for removal,Z97.5. TECHNIQUE: 2D digital imaging was performed. COMPARISON: CR,XR XR FOREARM RT from 06/24/2019 FINDINGS: Two views of the left humerus reveal no evidence fracture nor osseous lesions. Bone density is james l. No abnormal soft tissue calcifications. IMPRESSION: No significant radiographic findings on these two views of the left humerus. DATA REPOSITORY: RADIATION DOSE DELIVERED:
--- NOTE | 2021-01-28 07:00 | DI.MAMMO_ITS ---
Exam(s) MAMMO SCREENING EXAM: MAMMO SCREENING CLINICAL HISTORY: screening,Z12.39,FAMILY H/O BREAST CA,Z85.3. TECHNIQUE: Bilateral full field digital CC and MLO mammographic images were obtained with 3D tomosyn thesis and utilizing computer aided detection (CAD). COMPARISON: Prior mammograms dating back to 2011, the most recent being . FINDINGS: There are no significant radiograph findings in the right breast. In the medial aspect of the left breast there is a partially calcified nodule which appears to be mos t probably cutaneous-possibly a skin mole. No other significant left breast findings. There is no significant architectural distortion nor skin thickening-retraction. IMPRESSION: 1. No radiographic evidence of malignancy in the right breast. 2. Probable skin mole inferior medial aspect of the left breast. Correlation with clinical findings recommended. Another approach would be to repeat repeat views with mole marker in place BI-RADS Category 0 - Assessment Incomplete: Need additional imaging evaluation Breast Density - Category B - Scattered areas of fibroglandular density Breast density Category C or D implies that the patient has dense breast tissue. Dense breast tissue can make it harder to find cancer on a mammogram. Dense breast tissue is also associated with an incr eased risk of breast cancer. This information about the result of the mammogram report was provided to the patient to raise their awareness. Use this report when you speak with the patient about their risks for breast cancer, which includes their family history. At that time, you may recommend additional screening tests (Ultrasoun d or MRI) as these tests may add significant information. A negative radiographic report should not delay biopsy if a dominant or clinically suspicious mass is present. Up to ten percent of cancers are not identified on mammography. A negative report may reinforce clinical impression. Adenosis and dense breasts may obscure an underlying neoplasm. False positive reports average 6 to 10%. Patient will receive a letter notifying them of these results.
--- NOTE | 2021-01-28 11:00 | DI.RAD_ITS ---
Exam(s) XR HUMERUS RT EXAM: XR HUMERUS RT CLINICAL HISTORY: identify nexplanon location. TECHNIQUE: 2D digital imaging was performed. COMPARISON: No exams were available for comparison FINDINGS: No evidence of fracture nor osseous lesion in the right humerus. There is subcutaneous tubular struc ture in the medial aspect of the upper arm subcutaneous tissues. This measures the 3 centimetres by 0.1 cm IMPRESSION: DATA REPOSITORY: RADIATION DOSE DELIVERED:
== END 2021-01-28 02:52 ==
PROVIDERS: PCP Nurse Practitioner Family; Visit Provider Obstetrics & Gynecology
DX: Z30.46 Encounter for surveillance of implantable subdermal contraceptive (principal); Z12.31 Encounter for screening mammogram for malignant neoplasm of breast; Z80.3 Family history of malignant neoplasm of breast; R92.8 Other abnormal and inconclusive findings on diagnostic imaging of breast
CPT/HCPCS: 77063; 77067; 73060

== ENCOUNTER 2021-02-02 01:13 | Outpatient (CLI) | payer MEDICAID, SELFPAY ==
--- NOTE | 2021-02-02 | DI.MAMMO_ITS ---
Exam(s) MG MAMMO SCREEN CALL BACK UNI EXAM: MAMMO SCREEN CALL BACK UNI CLINICAL HISTORY: F/U MAMMO, MEDIAL LT BREAST NODULE, ? SKIN MOLE. TECHNIQUE: Unilateral spot mammographic images obtained with 3D tomosynthesisand utilizing computer aided detection (CAD). . Complete breast Ultrasound was also performed, including all 4 quadrants, the retroareolar region, a nd the ipsilateral axilla. COMPARISON: Prior mammograms were reviewed. This additional imaging was performed due to findings described on the recent screening mammogram of 01/29/2020. Mole marker was placed FINDINGS: Additional mammographic views performed todayrevealed the this nodules indeed a skin mole. Ultrasound was therefore not performed IMPRESSION: No radiographic evidence of malignancy. Skin mole. Appropriate follow-up is to keep this patient yearly mammogram schedule, with earlier imaging if a s elf detected breast changes noted.. The patient was informed of these findings and recommendations prior to leaving the department today. BI-RADS Category 2 - Benign Findings Breast Density - Category B - Scattered areas of fibroglandular density Breast density Category C or D implies that the patient has dense breast tissue. Dense breast tissue can make it harder to find cancer on a mammogram. Dense breast tissue is also associated with an incr eased risk of breast cancer. This information about the result of the mammogram report was provided to the patient to raise their awareness. Use this report when you speak with the patient about their risks for breast cancer, which includes their family history. At that time, you may recommend additional screening tests (Ultrasoun d or MRI) as these tests may add significant information. A negative radiographic report should not delay biopsy if a dominant or clinically suspicious mass is present. Up to ten percent of cancers are not identified on mammography. A negative report may reinforce clinical impression. Adenosis and dense breasts may obscure an underlying neoplasm. False positive reports average 6 to 10%. Patient will receive a letter notifying them of these results.
== END 2021-02-02 01:33 ==
PROVIDERS: PCP Nurse Practitioner Family; Visit Provider Obstetrics & Gynecology
DX: R92.8 Other abnormal and inconclusive findings on diagnostic imaging of breast (principal); D22.5 Melanocytic nevi of trunk
CPT/HCPCS: 77063; 77067